=== PATIENT | male | born 1955 | race Caucasian/White ===

== ENCOUNTER 2017-03-15 05:50 | Day surgery (SDC) | payer MEDICAID ==
[2017-03-15] MEDS ORDERED: Bupivacaine 0.5% 50 ML MDV ONE (06:55)
[2017-03-15] MEDS ORDERED: Lidocaine 1% with EPINEPHrine 1:100,000 50 ML MDV ONE (06:55)
[2017-03-15] MEDS ORDERED: Lactated Ringers 1,000 ML IV ONE (07:00)
[2017-03-15] MEDS ORDERED: Glycopyrrolate 0.2 MG/ML 2 ML SYRINGE IVPUSH ONE (07:00)
[2017-03-15] MEDS ORDERED: Cyanocobalamin (Vitamin B12) 1,000 MCG/ML SDV IM ONE (07:00)
[2017-03-15] MEDS ORDERED: Midazolam 1 MG/ML 2 ML SDV ONE (07:18)
[2017-03-15] MEDS ORDERED: Propofol 200 MG/20 ML SDV ONE ×2 (07:18→07:29)
[2017-03-15] MEDS ORDERED: fentaNYL 100 MCG/2 ML SDV ONE (07:18)
[2017-03-15] MEDS ORDERED: Bacitracin Oint 1 GM U/D Packet ONE (07:44)
[2017-03-15] MEDS ORDERED: MVI, Adult with Vitamin K 10 ML, Thiamine 200 MG, Chromium/Copper/Mang/Selen/Zn 1 ML in... IV ONE ×4 (08:00)
[2017-03-15 09:24] VITALS: BP 120/66
--- NOTE | 2017-03-21 14:28 | OR ---
DATE OF PROCEDURE: 03/15/2017 PREOPERATIVE DIAGNOSES: 1. 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 2. Foreign body, volar aspect of right wrist. POSTOPERATIVE DIAGNOSES: 1. 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 2. Metallic foreign body, volar aspect of right wrist with scar formation to adjacent flexor tendons. OPERATIVE PROCEDURE: 1. Upper GI endoscopy with dilation of gastrojejunostomy (50387). 2. Removal of foreign body, volar aspect of right wrist (54546). ANESTHESIA: Local plus IV sedation. INDICATION FOR PROCEDURE: A 61-year-old male presenting with some recurrent stricturing at his gastrojejunostomy. The plan is to proceed with upper GI endoscopy with dilation as indicated. Potential risks including bleeding and perforation were discussed, and the patient wishes to proceed. DETAILS OF PROCEDURE: The patient was taken to the operating room and placed in a left lateral decubitus position. IV sedation was administered, after which the upper GI endoscope was passed orally through the length of the esophagus and into the stomach with the gastrojejunostomy now being visualized and noted to be fairly tight measuring around 8 mm in diameter with relatively a little inflammation at the mucosal level. A Bard gastrointestinal balloon catheter was then placed across the anastomosis using fluoroscopic surveillance, inflated to 45-Georgian size, was held in position for 1 minute and after which balloon catheter was deflated and withdrawn. The scope could easily then be passed through the anastomosis. No complications were noted and the patient tolerated the procedure well. The patient was now placed in the supine position and the right wrist and surrounding areas were prepped and draped. The skin overlying the palpable foreign body was then anesthetized with 1% lidocaine mixed with Marcaine and a transverse incision was made and this was carried down through the skin and subcutaneous tissue. As one entered the fibrous capsule around the metallic foreign body, this was gradually dissected free. This was in the subfascial location partially between two of the flexor tendons. This was dissected off the flexor tendons without injury to the tendon themselves and the specimen delivered from the field. The incision was then closed with some 4-0 Vicryl stitch deep and a 5-0 Prolene skin stitch. Dressing was applied and the patient taken to the recovery room in satisfactory condition. The plan will be to try to get the patient a little bit larger level of dilation a week from now, as his nutritional status has become fairly tenuous. We will also remove the sutures at that time. This will be scheduled for this coming Wednesday. Jamari Augustin MD /[id number]
== END 2017-03-15 09:45 | disposition home or self-care (01) ==
LOC: JP.SDS 05:50
PROVIDERS: ATTEND Surgery
DX: K91.89 Other postprocedural complications and disorders of digestive system (principal); J44.9 Chronic obstructive pulmonary disease, unspecified; G47.33 Obstructive sleep apnea (adult) (pediatric); I25.10 Atherosclerotic heart disease of native coronary artery without angina pectoris; K21.9 Gastro-esophageal reflux disease without esophagitis; F32.9 Major depressive disorder, single episode, unspecified; F41.9 Anxiety disorder, unspecified
CPT/HCPCS: 20525; 43245; 88305; J2250; J2704; J3010; J3411; J3420; J7120

== ENCOUNTER 2017-03-22 07:27 | Day surgery (SDC) | payer MEDICAID ==
[2017-03-22] MEDS ORDERED: Lactated Ringers 1,000 ML IV SCH (08:00)
[2017-03-22] MEDS ORDERED: Cyanocobalamin (Vitamin B12) 1,000 MCG/ML SDV IM ONE (08:00)
[2017-03-22] MEDS ORDERED: Glycopyrrolate 0.2 MG/ML 2 ML SYRINGE IVPUSH ONE (08:30)
[2017-03-22] MEDS ORDERED: MVI, Adult with Vitamin K 10 ML, Thiamine 200 MG, Chromium/Copper/Mang/Selen/Zn 1 ML in... IV ONE ×4 (09:00)
[2017-03-22] MEDS ORDERED: Propofol 200 MG/20 ML SDV ONE (09:22)
[2017-03-22] MEDS ORDERED: fentaNYL 100 MCG/2 ML SDV ONE (09:22)
[2017-03-22] MEDS ORDERED: Midazolam 1 MG/ML 2 ML SDV ONE (09:22)
[2017-03-22 11:46] VITALS: BP 118/65
--- NOTE | 2017-03-28 13:32 | OR ---
DATE OF PROCEDURE: 03/22/2017 PREOPERATIVE DIAGNOSIS: Moderate stricture at gastrojejunostomy. POSTOPERATIVE DIAGNOSIS: Moderate stricture at gastrojejunostomy. PROCEDURE: Upper GI endoscopy with dilation of gastrojejunostomy. ANESTHESIA: IV sedation. INDICATION FOR PROCEDURE: This is a 61-year-old presenting with some problems with stricturing at his gastrojejunostomy, plan is to proceed with upper GI endoscopy with dilation as indicated. Potential risks including bleeding and perforation were discussed, and the patient wishes to proceed. DETAILS OF PROCEDURE: The patient was taken to the operating room and placed in a left lateral decubitus position. IV sedation was administered, after which the upper GI endoscope was passed orally through the length of the esophagus and into the gastric pouch. The patient did have a moderate stricture with the 1 cm scope not quite being able to be passed through the anastomosis. Bard gastrointestinal balloon catheter was then centered across the anastomosis and inflated to 45-Polish size. This was initially up to a 45 PSI. Upon deflation of the catheter, not much happened in terms of additional dilation. The catheter was then re-inflated to 60 PSI level. After the balloon was in position for 30 seconds, the catheter was withdrawn. This did result in a satisfactory dilation with the scope now easily being able to pass through the anastomosis. No complications were noted. The patient was taken to the recovery room in satisfactory condition. Note, the patient had a foreign body removed from his wrist on the right side a week ago. This incision was cleaned and the sutures were removed and Steri-Strips applied. Jamari Augustin MD /[id number]
== END 2017-03-22 11:35 | disposition home or self-care (01) ==
LOC: JP.SDS 07:27
PROVIDERS: ATTEND Surgery
DX: K91.89 Other postprocedural complications and disorders of digestive system (principal); J44.9 Chronic obstructive pulmonary disease, unspecified; I10 Essential (primary) hypertension; I25.10 Atherosclerotic heart disease of native coronary artery without angina pectoris; K21.9 Gastro-esophageal reflux disease without esophagitis; F41.9 Anxiety disorder, unspecified; F32.9 Major depressive disorder, single episode, unspecified; G47.33 Obstructive sleep apnea (adult) (pediatric)
CPT/HCPCS: 43245; J2250; J2704; J3010; J3411; J3420; J7120

== ENCOUNTER 2017-06-14 13:35 | Emergency (ER) | payer MEDICAID ==
[2017-06-14 14:12] VITALS: BP 111/67
--- NOTE | 2017-06-14 15:00 | EDM.PDOCBH ---
ED HPI GENERAL MEDICAL PROBLEM - General Chief Complaint: Behavioral/Psych Stated Complaint: SUICIDAL IDEATION Time Seen by Provider: 06/14/17 14:45 Source of Information: Reports: Patient, Family History Limitations: Reports: No Limitations - History of Present Illness INITIAL COMMENTS - FREE TEXT/NARRATIVE: Ryne is a 61 year old male with a hx of chronic neck pain, s/p gastric bypass with multiple esophageal dilitation who presents to the ED today with his brother and . Brother reports that patient has not been eating, he drinks wine "all day", drinks with his Percocet in order to help his chronic pain which patient agrees with. Brother reports that yesterday patient asked where the gun and bullets were because he wanted to "end things" and be with their Dad (who years ago). Patient tells me he wouldn't actually shoot himself. Brother also reports that patient has told him he would run infront of an oncoming car. Brother is concerned about suicidal ideation/behavior. Brother's committed suicide 3 years ago. Patient reports he "can't live like this anymore" referring to the chronic pain. Patient was most recently at [facility] where he had cervical spine injections done which he reports did not help. Neck Pain Score (Numeric/FACES): 10 - Related Data Allergies Allergy/AdvReac Type Severity Reaction Status Date / Time No Known Allergies Allergy Verified 03/05/17 08:06 Home Meds: Home Meds Aspirin [Vince Chewable Aspirin] 81 mg PO DAILY 12/08/14 [History] Nystatin/Triamcinolone Crm [Mycolog Crm] 1 film TOP BID PRN 12/08/14 [History] Polyethylene Glycol 3350 [MiraLAX] 17 gm PO ASDIRECTED 12/27/15 [History] oxyCODONE 10 mg PO Q6H PRN 01/01/16 [History] Multivitamins [Childrens Chewable Vitamin] 1 each PO BID #100 tab.chew 01/02/16 [Rx] Ibuprofen 400 mg PO Q8H PRN 08/27/16 [History] Calcium Carbonate [Calcium] 500 mg PO DAILY 09/24/16 [History] Cetirizine [ZyrTEC] 5 mg PO DAILY 09/24/16 [History] Acetaminophen [Mapap] 500 mg PO Q4H PRN 03/05/17 [History] Escitalopram [Lexapro] 10 mg PO DAILY 03/05/17 [History] Gabapentin [Neurontin] 300 mg PO TID 06/14/17 [History] Past Medical History HEENT History: Reports: Allergic Rhinitis, Hard of Hearing, Impaired Vision Other HEENT History: wears glasses Cardiovascular History: Reports: Bypass, CAD, High Cholesterol, Hypertension, [place] Respiratory History: Reports: Asthma, COPD, SOB Other Respiratory History: patient states no longer has respiratory problems; has been ok for past year Gastrointestinal History: Reports: Cholelithiasis, Chronic Constipation, Chronic Diarrhea, GERD, Hiatal Hernia, Irritable Bowel Syndrome, Pancreatitis, Other (See Below) Other Gastrointestinal History: colitis; denies all problems within past 2 years Genitourinary History: Reports: None Musculoskeletal History: Reports: Fracture, Neck Pain, Chronic, Osteoarthritis Neurological History: Reports: TIA Psychiatric History: Reports: Anxiety, Depression, Panic Attack Other Psychiatric History: denies this history Endocrine/Metabolic History: Reports: Diabetes, Type II, Vitamin D Deficiency Other Endocrine/Metabolic History: diabetes controlled within last 1.5 years and not on any medication Hematologic History: Reports: Anemia, B12 Deficiency, Blood Transfusion(s) Immunologic History: Reports: None Oncologic (Cancer) History: Reports: None Dermatologic History: Reports: Other (See Below) Other Dermatologic History: occasional rash - Infectious Disease History Infectious Disease History: Reports: Chicken Pox, Measles, Mumps Other Infectious Disease History: unknown - Past Surgical History Head Surgeries/Procedures: Reports: None HEENT Surgical History: Reports: Other (See Below) Other HEENT Surgeries/Procedures: scar tissue removed from nose Cardiovascular Surgical History: Reports: Coronary Artery Bypass, Other (See Below) Other Cardiovascular Surgeries/Procedures: quad bypass-2012 veins removed left arm= No BP or IV-poor circulation Respiratory Surgical History: Reports: None GI Surgical History: Reports: Bariatric Procedure, Cholecystectomy, Colonoscopy , EGD, Esophageal Dilatation, Hernia, Abdominal, Gisela Fundoplication Other GI Surgeries/Procedures: lap RNY on 12-31-15 Male Surgical History: Reports: None Endocrine Surgical History: Reports: None Neurological Surgical History: Reports: None Musculoskeletal Surgical History: Reports: None Oncologic Surgical History: Reports: None Dermatological Surgical History: Reports: Other (See Below) Social & Family History - Family History Family Medical History: Noncontributory HEENT: Reports: Cataract, Hearing Impairment, Impaired Vision Cardiac: Reports: CAD, Hypertension Respiratory: Reports: COPD GI: Reports: None : Reports: None OBGYN: Reports: None Musculoskeletal: Reports: Arthritis, Gout Neurological: Reports: None Psychiatric: Reports: Anxiety Endocrine/Metabolic: Reports: Diabetes, Type I, Diabetes, type II Hematologic: Reports: None Immunologic: Reports: None Dermatologic: Reports: None Oncologic: Reports: Prostate - Tobacco Use Smoking Status *Q: Former Smoker Years of Tobacco use: 30 Packs/Tins Daily: 1 Used Tobacco, but Quit: Yes Month Tobacco Last Used: many years ago Second Hand Smoke Exposure: No - Caffeine Use Caffeine Use: Reports: None Other Caffeine Use: 1/2 cup per day - Alcohol Use Days Per Week of Alcohol Use: 7 Number of Drinks Per Day: 6 Total Drinks Per Week: 42 Date of Last Drink: 06/14/17 - Recreational Drug Use Recreational Drug Use: Yes Drug Use in Last 12 Months: Yes Recreational Drug Type: Reports: Marijuana/Hashish, Oxycodone Recreational Drug Use Frequency: Daily ED ROS GENERAL - Review of Systems Review Of Systems: ROS reveals no pertinent complaints other than HPI. ED EXAM, BEHAVIORAL HEALTH - Physical Exam Exam: See Below Exam Limited By: No Limitations General Appearance: Alert, WD/WN Respiratory/Chest: No Respiratory Distress, Lungs Clear, Normal Breath Sounds Cardiovascular: Normal Peripheral Pulses, Regular Rate, Rhythm GI/Abdominal: Normal Bowel Sounds, Soft, Other (generalized abdominal tenderness ) Extremities: Normal Inspection Neurological: Alert, Other (flat affect, oriented times three) Psychiatric: Alert, Flat Affect, Suicidal Thoughts Skin Exam: Warm, Dry, Other (multiple areas where patient has scratched and left open wounds on upper extremities.) COURSE, BEHAVIORAL HEALTH COMP - Course Vital Signs: Last Vital Signs Temp 35.9 C 06/14/17 14:11 Pulse 66 06/14/17 14:11 Resp 16 06/14/17 14:11 BP 111/67 06/14/17 14:11 Pulse Ox 96 06/14/17 14:11 Ryne is a 61 year old male with chronic pain who presents to the ED with his and brother who are concerned about patient and suicidal ideation. Please refer to HPI and focused exam. Patient denies actively being suicidal but reports he also does not want to go on living. Crisis team has been called to evaluate patient. Blood work is pending. Orders, Labs, Meds: Laboratory Tests 06/14/17 06/14/17 06/14/17 Range/Units 14:44 14:44 14:55 WBC 6.5 (4.5-11.0) K/uL RBC 3.10 L (4.30-5.90) M/uL Hgb 10.8 L D (12.0-15.0) g/dL Hct 32.4 L (40.0-54.0) % MCV 105 H (80-98) fL MCH 35 H (27-31) pg MCHC 33 (32-36) % Plt Count 173 (150-400) K/uL Neut % (Auto) 65 (36-66) % Lymph % (Auto) 16 L (24-44) % Henry % (Auto) 16 H (2-6) % Eos % (Auto) 1 L (2-4) % Baso % (Auto) 1 (0-1) % Sodium 140 (140-148) mmol/L Potassium 4.0 (3.6-5.2) mmol/L Chloride 105 (100-108) mmol/L Carbon Dioxide 31 (21-32) mmol/L Anion Gap 3.6 L (5.0-14.0) mmol/L BUN 5 L (7-18) mg/dL Creatinine 0.7 L (0.8-1.3) mg/dL Est Cr Clr Drug Dosing 114.83 mL/min Estimated GFR (MDRD) > 60 (>60) Glucose 110 H (74-106) mg/dL Calcium 7.9 L (8.5-10.1) mg/dL Total Bilirubin 0.8 (0.2-1.0) mg/dL Direct Bilirubin 0.43 H (0.0-0.2) mg/dL Indirect Bilirubin 0.37 AST 146 H D (15-37) U/L ALT 64 D (12-78) U/L Alkaline Phosphatase 159 H (46-116) U/L Total Protein 5.6 L (6.4-8.2) g/dL Albumin 2.5 L (3.4-5.0) g/dL Globulin 3.1 (2.3-3.5) g/dL Albumin/Globulin Ratio 0.8 L (1.2-2.2) TSH, Ultra Sensitive (0.358-3.740) uIU/mL Urine Color Urine Appearance Urine pH (4.5-8.0) Ur Specific [place] (1.008-1.030) Urine Protein (NEGATIVE) mg/dL Urine Glucose (UA) (NEGATIVE) mg/dL Urine Ketones (NEGATIVE) mg/dL Urine Occult Blood (NEGATIVE) Urine Nitrite (NEGAITVE) Urine Bilirubin (NEGATIVE) Urine Urobilinogen (NORMAL) mg/dL Ur Leukocyte Esterase (NEGATIVE) Urine RBC (0-5) Urine WBC (0-5) Ur Epithelial Cells Amorphous Sediment Urine Bacteria Urine Mucus Urine Opiates Screen (NEGATIVE) Ur Oxycodone Screen (NEGATIVE) Urine Methadone Screen (NEGATIVE) Ur Propoxyphene Screen (NEGATIVE) Ur Barbiturates Screen (NEGATIVE) Ur Tricyclics Screen (NEGATIVE) Ur Phencyclidine Scrn (NEGATIVE) Ur Amphetamine Screen (NEGATIVE) U Methamphetamines Scrn (NEGATIVE) Urine MDMA Screen (NEGATIVE) U Benzodiazepines Scrn (NEGATIVE) U Cocaine Metab Screen (NEGATIVE) U Marijuana (THC) Screen (NEGATIVE) Ethyl Alcohol mg/dL 06/14/17 06/14/17 06/14/17 Range/Units 15:53 15:53 15:55 WBC (4.5-11.0) K/uL RBC (4.30-5.90) M/uL Hgb (12.0-15.0) g/dL Hct (40.0-54.0) % MCV (80-98) fL MCH (27-31) pg MCHC (32-36) % Plt Count (150-400) K/uL Neut % (Auto) (36-66) % Lymph % (Auto) (24-44) % Henry % (Auto) (2-6) % Eos % (Auto) (2-4) % Baso % (Auto) (0-1) % Sodium (140-148) mmol/L Potassium (3.6-5.2) mmol/L Chloride (100-108) mmol/L Carbon Dioxide (21-32) mmol/L Anion Gap (5.0-14.0) mmol/L BUN (7-18) mg/dL Creatinine (0.8-1.3) mg/dL Est Cr Clr Drug Dosing mL/min Estimated GFR (MDRD) (>60) Glucose (74-106) mg/dL Calcium (8.5-10.1) mg/dL Total Bilirubin (0.2-1.0) mg/dL Direct Bilirubin (0.0-0.2) mg/dL Indirect Bilirubin AST (15-37) U/L ALT (12-78) U/L Alkaline Phosphatase (46-116) U/L Total Protein (6.4-8.2) g/dL Albumin (3.4-5.0) g/dL Globulin (2.3-3.5) g/dL Albumin/Globulin Ratio (1.2-2.2) TSH, Ultra Sensitive (0.358-3.740) uIU/mL Urine Color Yellow Urine Appearance Clear Urine pH 7.0 (4.5-8.0) Ur Specific [place] 1.010 (1.008-1.030) Urine Protein Negative (NEGATIVE) mg/dL Urine Glucose (UA) Normal (NEGATIVE) mg/dL Urine Ketones Negative (NEGATIVE) mg/dL Urine Occult Blood Negative (NEGATIVE) Urine Nitrite Negative (NEGAITVE) Urine Bilirubin Negative (NEGATIVE) Urine Urobilinogen 4 (NORMAL) mg/dL Ur Leukocyte Esterase Negative (NEGATIVE) Urine RBC 0-5 (0-5) Urine WBC 0-5 (0-5) Ur Epithelial Cells Few Amorphous Sediment Few Urine Bacteria Not seen Urine Mucus Few Urine Opiates Screen Negative (NEGATIVE) Ur Oxycodone Screen Positive H (NEGATIVE) Urine Methadone Screen Negative (NEGATIVE) Ur Propoxyphene Screen Negative (NEGATIVE) Ur Barbiturates Screen Negative (NEGATIVE) Ur Tricyclics Screen Negative (NEGATIVE) Ur Phencyclidine Scrn Negative (NEGATIVE) Ur Amphetamine Screen Negative (NEGATIVE) U Methamphetamines Scrn Negative (NEGATIVE) Urine MDMA Screen Negative (NEGATIVE) U Benzodiazepines Scrn Negative (NEGATIVE) U Cocaine Metab Screen Negative (NEGATIVE) U Marijuana (THC) Screen Negative (NEGATIVE) Ethyl Alcohol 182 mg/dL 06/14/17 Range/Units 16:22 WBC (4.5-11.0) K/uL RBC (4.30-5.90) M/uL Hgb (12.0-15.0) g/dL Hct (40.0-54.0) % MCV (80-98) fL MCH (27-31) pg MCHC (32-36) % Plt Count (150-400) K/uL Neut % (Auto) (36-66) % Lymph % (Auto) (24-44) % Henry % (Auto) (2-6) % Eos % (Auto) (2-4) % Baso % (Auto) (0-1) % Sodium (140-148) mmol/L Potassium (3.6-5.2) mmol/L Chloride (100-108) mmol/L Carbon Dioxide (21-32) mmol/L Anion Gap (5.0-14.0) mmol/L BUN (7-18) mg/dL Creatinine (0.8-1.3) mg/dL Est Cr Clr Drug Dosing mL/min Estimated GFR (MDRD) (>60) Glucose (74-106) mg/dL Calcium (8.5-10.1) mg/dL Total Bilirubin (0.2-1.0) mg/dL Direct Bilirubin (0.0-0.2) mg/dL Indirect Bilirubin AST (15-37) U/L ALT (12-78) U/L Alkaline Phosphatase (46-116) U/L Total Protein (6.4-8.2) g/dL Albumin (3.4-5.0) g/dL Globulin (2.3-3.5) g/dL Albumin/Globulin Ratio (1.2-2.2) TSH, Ultra Sensitive 2.107 (0.358-3.740) uIU/mL Urine Color Urine Appearance Urine pH (4.5-8.0) Ur Specific [place] (1.008-1.030) Urine Protein (NEGATIVE) mg/dL Urine Glucose (UA) (NEGATIVE) mg/dL Urine Ketones (NEGATIVE) mg/dL Urine Occult Blood (NEGATIVE) Urine Nitrite (NEGAITVE) Urine Bilirubin (NEGATIVE) Urine Urobilinogen (NORMAL) mg/dL Ur Leukocyte Esterase (NEGATIVE) Urine RBC (0-5) Urine WBC (0-5) Ur Epithelial Cells Amorphous Sediment Urine Bacteria Urine Mucus Urine Opiates Screen (NEGATIVE) Ur Oxycodone Screen (NEGATIVE) Urine Methadone Screen (NEGATIVE) Ur Propoxyphene Screen (NEGATIVE) Ur Barbiturates Screen (NEGATIVE) Ur Tricyclics Screen (NEGATIVE) Ur Phencyclidine Scrn (NEGATIVE) Ur Amphetamine Screen (NEGATIVE) U Methamphetamines Scrn (NEGATIVE) Urine MDMA Screen (NEGATIVE) U Benzodiazepines Scrn (NEGATIVE) U Cocaine Metab Screen (NEGATIVE) U Marijuana (THC) Screen (NEGATIVE) Ethyl Alcohol mg/dL Medications Discontinued Medications Generic Name Dose Route Start Last Admin Trade Name Lina PRN Reason Stop Dose Admin Diazepam 10 mg 06/14/17 19:30 06/14/17 19:35 Valium. PO 06/14/17 19:31 10 mg ONETIME ONE Administration Ryne is a 61 year old male, hx of chronic pain, on oxycodone (Percocet) who presents to the ED with his family for suicidal ideation. Please refer to HPI and focused exam. Patient refuses to speak with crisis team on arrival here. Will call [facility] patient, patient was placed on 72 hour hold for suicidal ideation. Blood work as noted above with mildly low HGB of 10.8, likely FATIMAH related based on other results. Normal WBC. CMP returns with anion gap of 3.6, calcium of 7.9 and AST of 146. Alk phos is 159 and total protein of 5.6, otherwise unremarkable. UA negative for infection. Drug screen pending. Blood ETOH 0.182 [address]. Patient accepted at [facility] by Dr. Sandhu. Transferred in stable condition by [facility] transport. Departure - Departure Time of Disposition: 21:00 Disposition: DC/Tfer to Psych Hosp/Unit 65 Condition: Good Clinical Impression: Alcohol abuse, Drug abuse, Suicidal ideation - Discharge Information Referrals: PCP,None [Primary Care Provider] - Forms: ED Department Discharge
[2017-06-14] MEDS ORDERED: Diazepam 5 MG Tab PO ONE (19:30)
== END 2017-06-14 21:03 ==
LOC: JP.ED 13:35
DX: R45.851 Suicidal ideations (principal); F10.10 Alcohol abuse, uncomplicated; Y90.6 Blood alcohol level of 120-199 mg/100 ml; F19.10 Other psychoactive substance abuse, uncomplicated; E11.9 Type 2 diabetes mellitus without complications; J44.9 Chronic obstructive pulmonary disease, unspecified; I25.10 Atherosclerotic heart disease of native coronary artery without angina pectoris; M19.90 Unspecified osteoarthritis, unspecified site; E78.00 Pure hypercholesterolemia, unspecified; I10 Essential (primary) hypertension; D64.9 Anemia, unspecified; I25.2 Old myocardial infarction; K21.9 Gastro-esophageal reflux disease without esophagitis; F41.9 Anxiety disorder, unspecified; F32.9 Major depressive disorder, single episode, unspecified; Z87.891 Personal history of nicotine dependence; Z79.82 Long term (current) use of aspirin; Z95.1 Presence of aortocoronary bypass graft; Z98.890 Other specified postprocedural states; Z98.84 Bariatric surgery status; Z90.49 Acquired absence of other specified parts of digestive tract; Z86.73 Personal history of transient ischemic attack (TIA), and cerebral infarction without residual deficits; Z79.899 Other long term (current) drug therapy
CPT/HCPCS: 36415; 80048; 80076; 80305; 81001; 84443; 85025; 99284; A9270; G0480

== ENCOUNTER 2017-09-14 05:40 | Day surgery (SDC) | payer MEDICAID ==
[2017-09-14] MEDS ORDERED: Lactated Ringers 1,000 ML IV SCH (06:15)
[2017-09-14] MEDS ORDERED: MVI, Adult with Vitamin K 10 ML, Thiamine 200 MG, Chromium/Copper/Mang/Selen/Zn 1 ML in... IV ONE ×4 (06:30)
[2017-09-14] MEDS ORDERED: Cyanocobalamin (Vitamin B12) 1,000 MCG/ML SDV IM ONE (06:30)
[2017-09-14] MEDS ORDERED: Midazolam 1 MG/ML 2 ML SDV ONE (07:15)
[2017-09-14] MEDS ORDERED: Propofol 200 MG/20 ML SDV ONE ×2 (07:15→07:36)
[2017-09-14] MEDS ORDERED: Glycopyrrolate 0.2 MG/ML 2 ML SDV IVPUSH ONE (07:15)
[2017-09-14] MEDS ORDERED: fentaNYL 100 MCG/2 ML SDV ONE (07:15)
[2017-09-14] MEDS ORDERED: Pantoprazole 40 MG Vial IVPUSH ONE (07:42)
[2017-09-14 08:59] VITALS: BP 117/55
--- NOTE | 2017-09-15 17:20 | OR ---
DATE OF PROCEDURE: 09/14/2017 PREOPERATIVE DIAGNOSIS: Probable stricture versus ulcerated gastrojejunostomy. 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 OPERATIVE PROCEDURE: Upper GI endoscopy with dilation of gastrojejunostomy (11716). ANESTHESIA: IV sedation. INDICATIONS FOR PROCEDURE: A 62-year-old male presenting with worsening dysphagia and some intermittent emesis. He also complains of some burning pain. Plan is to proceed with an upper GI endoscopy with biopsies and/or dilation as indicated. Potential risks including bleeding and perforation were discussed, and the patient wishes to proceed. DETAILS OF PROCEDURE: The patient was taken to the operating room and placed in a left lateral decubitus position. IV sedation was administered, after which the upper GI endoscope was passed orally through the length of the esophagus and into the gastric pouch. No retained food or fluid was noted. He was noted to have a moderate strictured gastrojejunostomy with 1 cm scope not quite even being able to get across the anastomosis. There was little in the way of acute inflammation however. The Bard gastrointestinal balloon catheter was initially centered over the gastrojejunostomy with fluoroscopic surveillance and inflated to 45-Albanian size. After this was deflated, we decided to go with a little bit larger size and that being a 54-Albanian. This was likewise inflated and held in position for 1 minute and balloon catheter was deflated and withdrawn. There was good dilation evident and no evident complications. The patient was taken to the recovery room in a satisfactory condition. Jamari Augustin MD /[id number]
== END 2017-09-14 11:17 | disposition home or self-care (01) ==
LOC: JP.SDS 05:40
PROVIDERS: ATTEND Surgery
DX: K91.89 Other postprocedural complications and disorders of digestive system (principal); I25.10 Atherosclerotic heart disease of native coronary artery without angina pectoris; I10 Essential (primary) hypertension; J44.9 Chronic obstructive pulmonary disease, unspecified; G47.33 Obstructive sleep apnea (adult) (pediatric); F41.9 Anxiety disorder, unspecified; E11.9 Type 2 diabetes mellitus without complications; E55.9 Vitamin D deficiency, unspecified; F32.9 Major depressive disorder, single episode, unspecified; K21.9 Gastro-esophageal reflux disease without esophagitis; Z98.84 Bariatric surgery status; Z95.1 Presence of aortocoronary bypass graft; Z90.49 Acquired absence of other specified parts of digestive tract
CPT/HCPCS: 36415; 43245; 80053; 82607; 82728; 82746; 83735; 84100; 84425; 85027; C9113; J2250; J2704; J3010; J3411; J3420; J7120; J3490

== ENCOUNTER 2017-11-02 09:32 | Day surgery (SDC) | payer MEDICAID ==
[~2017-11-02 09:32] MED LIST: Glycopyrrolate 0.2 MG/ML 2 ML SDV IVPUSH ONE; Lactated Ringers 1,000 ML IV ONE
[2017-11-02] MEDS ORDERED: Propofol 200 MG/20 ML SDV ONE (09:43)
[2017-11-02] MEDS ORDERED: fentaNYL 100 MCG/2 ML SDV ONE (09:43)
[2017-11-02] MEDS ORDERED: Midazolam 1 MG/ML 2 ML SDV ONE (09:43)
[2017-11-02] MEDS ORDERED: Cyanocobalamin (Vitamin B12) 1,000 MCG/ML SDV IM ONE (09:45)
[2017-11-02] MEDS ORDERED: MVI, Adult with Vitamin K 10 ML, Thiamine 200 MG, Chromium/Copper/Mang/Selen/Zn 1 ML in... IV ONE ×4 (10:00)
[2017-11-02] MEDS ORDERED: Pantoprazole 40 MG Vial IVPUSH ONE (12:46)
[2017-11-02 13:47] VITALS: BP 139/79
--- NOTE | 2017-11-11 09:46 | OR ---
DATE OF PROCEDURE: 11/02/2017 PREOPERATIVE DIAGNOSIS: Possible stricture at the gastrojejunostomy. POSTOPERATIVE DIAGNOSES: 1. Stricture at the gastrojejunostomy. 2. Ulceration at the gastrojejunostomy. OPERATIVE PROCEDURE: Upper gastrointestinal endoscopy with dilation of gastrojejunostomy (45122). ANESTHESIA: IV sedation. INDICATION FOR PROCEDURE: A 62-year-old presenting with some meat caught in the area of the gastric pouch and gastrojejunostomy over the last 6 days. The patient has recently been on Prilosec 40 mg b.i.d. as well as Carafate liquid q.i.d. The plan is to proceed with upper GI endoscopy with biopsy, dilation, and removal of foreign body as indicated. Potential risks including bleeding and perforation were discussed, and the patient wishes to proceed. DETAILS OF PROCEDURE: The patient was taken to the operating room and placed in a left lateral decubitus position. IV sedation was administered, after which the upper GI endoscope was passed orally through the length of the esophagus and into the gastric pouch and from there to the level of gastrojejunostomy. The patient was noted to have quite a bit of bruising in the area of the distal esophagus and gastric pouch. There was no retained meat or other food at this point. There was evidence of this having been impacted in that area over the past few days. Based on the above findings, the patient did have some ulceration of the posterior aspect of the gastrojejunostomy and that may be related to the foreign body in that area. There was mild degree of stricturing with 1 cm gastroscope not quite being able to be passed across the anastomosis; therefore, a gastrointestinal catheter was then centered across the anastomosis and balloon inflated to 45-Arabic size. This was held in position for 1 minute after which the balloon catheter was deflated and withdrawn. At that point, the scope would easily pass through the gastrojejunostomy and no complications were noted and the scope was withdrawn. The patient was taken to the recovery room in satisfactory condition. The patient will be instructed to continue with the present medical management and continue on a liquid diet for another 7 days. He will be set up for followup with NATALIE Bowling, in 1 month. Jamari Augustin MD /[id number]
== END 2017-11-02 14:00 | disposition home or self-care (01) ==
LOC: JP.SDS 09:32
PROVIDERS: ATTEND Surgery
DX: K91.89 Other postprocedural complications and disorders of digestive system (principal)
CPT/HCPCS: 36415; 43245; 80053; 82607; 82728; 83735; 84100; 85027; C9113; J2250; J2704; J3010; J3411; J3420; J7120; J3490

== ENCOUNTER 2017-12-09 16:19 | Emergency (ER) | payer MEDICAID ==
[2017-12-09 17:18] VITALS: BP 84/51
--- NOTE | 2017-12-09 18:17 | EDM.PDOCBH ---
ED HPI GENERAL MEDICAL PROBLEM - General Chief Complaint: Drug or Alcohol Abuse Stated Complaint: eval Time Seen by Provider: 12/09/17 18:12 Source of Information: Reports: Patient History Limitations: Reports: No Limitations - History of Present Illness INITIAL COMMENTS - FREE TEXT/NARRATIVE: pt arrived with a history of increaSINGLY DRINKING MORE AND MORE WINE. hE IS PRESENTLY DRINKING AT LEAST 4 -- 16 OZ BOTTLES DAILY OF THE WINE. Onset: Gradual, Other (PT IS INTERESTED IN MAKING CHANGES. hE IS DUE TO HAVE SOME INJECTIONS IN HIS NECK. ) Duration: Hour(s): Location: Reports: Neck Associated Symptoms: Reports: No Other Symptoms Neck Pain Score (Numeric/FACES): 5 - Related Data Allergies Allergy/AdvReac Type Severity Reaction Status Date / Time No Known Allergies Allergy Verified 12/09/17 17:35 Home Meds: Home Meds Aspirin [Vince Chewable Aspirin] 81 mg PO DAILY 12/08/14 [History] Cetirizine [ZyrTEC] 10 mg PO DAILY 09/24/16 [History] Cholecalciferol (Vitamin D3) [Vitamin D] 5,000 unit PO DAILY 11/02/17 [History] Diphenoxylate HCl/Atropine [Lomotil] 1 tab PO Q6H PRN 11/02/17 [History] Fish Oil/[place]-3 Fatty Acids [Fish Oil 1,000 MG] 1 cap PO DAILY 11/02/17 [ History] Gabapentin [Neurontin] 300 mg PO TID 11/02/17 [History] LORazepam 0.5 mg PO ASDIRECTED PRN 11/02/17 [History] Magnesium Oxide [Magnesium] 400 mg PO DAILY 11/02/17 [History] Sucralfate [Carafate] 1 gm PO ASDIRECTED 11/02/17 [History] traZODone 1 - 2 tab PO BEDTIME 11/02/17 [History] Past Medical History HEENT History: Reports: Allergic Rhinitis, Hard of Hearing, Impaired Vision Other HEENT History: wears glasses Cardiovascular History: Reports: Bypass, CAD, High Cholesterol, Hypertension, ID Respiratory History: Reports: Asthma, COPD, SOB Other Respiratory History: patient states no longer has respiratory problems; has been ok for past year Gastrointestinal History: Reports: Cholelithiasis, Chronic Constipation, Chronic Diarrhea, GERD, Hiatal Hernia, Irritable Bowel Syndrome, Pancreatitis, Other (See Below) Other Gastrointestinal History: colitis Genitourinary History: Reports: None Musculoskeletal History: Reports: Fracture, Neck Pain, Chronic, Osteoarthritis Neurological History: Reports: TIA Psychiatric History: Reports: Addiction, Anxiety, Depression, Panic Attack Other Psychiatric History: denies this history Endocrine/Metabolic History: Reports: Diabetes, Type II, Vitamin D Deficiency Other Endocrine/Metabolic History: has not had diabetic issues since bariatric surgery Hematologic History: Reports: Anemia, B12 Deficiency, Blood Transfusion(s) Immunologic History: Reports: None Oncologic (Cancer) History: Reports: None Dermatologic History: Reports: Other (See Below) Other Dermatologic History: occasional rash - Infectious Disease History Infectious Disease History: Reports: Chicken Pox, Measles, Mumps Other Infectious Disease History: unknown - Past Surgical History HEENT Surgical History: Reports: Other (See Below) Other HEENT Surgeries/Procedures: scar tissue removed from nose Cardiovascular Surgical History: Reports: Coronary Artery Bypass, Other (See Below) Other Cardiovascular Surgeries/Procedures: quad bypass-2011 veins removed left arm= No BP or IV-poor circulation GI Surgical History: Reports: Bariatric Procedure, Cholecystectomy, Colonoscopy , EGD, Esophageal Dilatation, Hernia, Abdominal, Gisela Fundoplication Other GI Surgeries/Procedures: lap RNY on 12-31-15 Social & Family History - Family History Family Medical History: Noncontributory HEENT: Reports: Cataract, Hearing Impairment, Impaired Vision Cardiac: Reports: CAD, Hypertension Respiratory: Reports: COPD GI: Reports: None : Reports: None OBGYN: Reports: None Musculoskeletal: Reports: Arthritis, Gout Neurological: Reports: None Psychiatric: Reports: Anxiety Endocrine/Metabolic: Reports: Diabetes, Type I, Diabetes, type II Hematologic: Reports: None Immunologic: Reports: None Dermatologic: Reports: None Oncologic: Reports: Prostate - Tobacco Use Smoking Status *Q: Never Smoker Years of Tobacco use: 30 Packs/Tins Daily: 1 Used Tobacco, but Quit: Yes Month Tobacco Last Used: Second Hand Smoke Exposure: No - Caffeine Use Caffeine Use: Reports: None Other Caffeine Use: 1/2 cup per day - Alcohol Use Days Per Week of Alcohol Use: 7 Number of Drinks Per Day: 4 Total Drinks Per Week: 28 - Recreational Drug Use Recreational Drug Use: No Drug Use in Last 12 Months: Yes Recreational Drug Type: Reports: Other (see below) Other Recreational Drug Type: used medical marijuana last night but didn't do anything for him Recreational Drug Use Frequency: Daily ED ROS GENERAL - Review of Systems Review Of Systems: See Below Constitutional: Reports: No Symptoms HEENT: Reports: No Symptoms Respiratory: Reports: No Symptoms Cardiovascular: Reports: No Symptoms Endocrine: Reports: No Symptoms GI/Abdominal: Reports: No Symptoms : Reports: No Symptoms Musculoskeletal: Reports: No Symptoms Skin: Reports: No Symptoms Neurological: Reports: Other (PT HAS BEEN DRINKING MORE THAN USUAL. ) ED EXAM, BEHAVIORAL HEALTH - Physical Exam Exam: See Below Text/Narrative:: PT ARRIVED WITH AHISTORY OF DRINKING ALOT OF WINE EVERY DAY, hE WISHES TO GO [facility]. Exam Limited By: No Limitations General Appearance: Alert, Mild Distress, Other (PUPILS EQUAL AND REACTIVE. ) Ears: Normal TMs Nose: Normal Inspection Throat/Mouth: Normal Inspection Head: Atraumatic Neck: Normal Inspection Respiratory/Chest: No Respiratory Distress Cardiovascular: Regular Rate, Rhythm GI/Abdominal: Soft, Non-Tender (Male) Exam: Deferred Rectal (Males) Exam: Deferred Back Exam: Normal Inspection Extremities: Normal Inspection Neurological: Alert, Oriented x 3 Psychiatric: Alert, Normal Cognition COURSE, BEHAVIORAL HEALTH COMP - Course Vital Signs: Last Vital Signs Temp 35.6 C 12/09/17 17:32 Pulse 87 12/09/17 17:32 Resp 16 12/09/17 17:32 BP 84/51 L 12/09/17 17:32 Pulse Ox 96 12/09/17 17:32 Orders, Labs, Meds: Laboratory Tests 12/09/17 12/09/17 12/09/17 Range/Units 18:11 18:11 18:11 WBC 6.7 (4.5-11.0) K/uL RBC 3.80 L (4.30-5.90) M/uL Hgb 12.9 (12.0-15.0) g/dL Hct 39.4 L (40.0-54.0) % MCV 104 H (80-98) fL MCH 34 H (27-31) pg MCHC 33 (32-36) % Plt Count 180 (150-400) K/uL Neut % (Auto) 57 (36-66) % Lymph % (Auto) 27 (24-44) % [place] % (Auto) 13 H (2-6) % Eos % (Auto) 2 (2-4) % Baso % (Auto) 1 (0-1) % Sodium 130 L (140-148) mmol/L Potassium 4.2 (3.6-5.2) mmol/L Chloride 99 L (100-108) mmol/L Carbon Dioxide 27 (21-32) mmol/L Anion Gap 8.2 (5.0-14.0) mmol/L BUN 7 (7-18) mg/dL Creatinine 0.7 L (0.8-1.3) mg/dL Est Cr Clr Drug Dosing 118.56 mL/min Estimated GFR (MDRD) > 60 (>60) Glucose 103 (74-106) mg/dL Calcium 8.1 L (8.5-10.1) mg/dL Total Bilirubin 0.3 D (0.2-1.0) mg/dL AST 70 H (15-37) U/L ALT 45 (12-78) U/L Alkaline Phosphatase 132 H (46-116) U/L Total Protein 5.1 L (6.4-8.2) g/dL Albumin 2.4 L (3.4-5.0) g/dL Globulin 2.7 (2.3-3.5) g/dL Albumin/Globulin Ratio 0.9 L (1.2-2.2) Lipase (73-393) U/L Urine Color Urine Appearance Urine pH (4.5-8.0) Ur Specific [place] (1.008-1.030) Urine Protein (NEGATIVE) mg/dL Urine Glucose (UA) (NEGATIVE) mg/dL Urine Ketones (NEGATIVE) mg/dL Urine Occult Blood (NEGATIVE) Urine Nitrite (NEGAITVE) Urine Bilirubin (NEGATIVE) Urine Urobilinogen (NORMAL) mg/dL Ur Leukocyte Esterase (NEGATIVE) Urine RBC (0-5) Urine WBC (0-5) Ur Epithelial Cells Amorphous Sediment Urine Bacteria Urine Mucus Urine Opiates Screen (NEGATIVE) Ur Oxycodone Screen (NEGATIVE) Urine Methadone Screen (NEGATIVE) Ur Propoxyphene Screen (NEGATIVE) Ur Barbiturates Screen (NEGATIVE) Ur Tricyclics Screen (NEGATIVE) Ur Phencyclidine Scrn (NEGATIVE) Ur Amphetamine Screen (NEGATIVE) U Methamphetamines Scrn (NEGATIVE) Urine MDMA Screen (NEGATIVE) U Benzodiazepines Scrn (NEGATIVE) U Cocaine Metab Screen (NEGATIVE) U Marijuana (THC) Screen (NEGATIVE) Ethyl Alcohol 170 mg/dL 12/09/17 12/09/17 12/09/17 Range/Units 18:18 18:25 18:25 WBC (4.5-11.0) K/uL RBC (4.30-5.90) M/uL Hgb (12.0-15.0) g/dL Hct (40.0-54.0) % MCV (80-98) fL MCH (27-31) pg MCHC (32-36) % Plt Count (150-400) K/uL Neut % (Auto) (36-66) % Lymph % (Auto) (24-44) % [place] % (Auto) (2-6) % Eos % (Auto) (2-4) % Baso % (Auto) (0-1) % Sodium (140-148) mmol/L Potassium (3.6-5.2) mmol/L Chloride (100-108) mmol/L Carbon Dioxide (21-32) mmol/L Anion Gap (5.0-14.0) mmol/L BUN (7-18) mg/dL Creatinine (0.8-1.3) mg/dL Est Cr Clr Drug Dosing mL/min Estimated GFR (MDRD) (>60) Glucose (74-106) mg/dL Calcium (8.5-10.1) mg/dL Total Bilirubin (0.2-1.0) mg/dL AST (15-37) U/L ALT (12-78) U/L Alkaline Phosphatase (46-116) U/L Total Protein (6.4-8.2) g/dL Albumin (3.4-5.0) g/dL Globulin (2.3-3.5) g/dL Albumin/Globulin Ratio (1.2-2.2) Lipase 73 (73-393) U/L Urine Color Yellow Urine Appearance Clear Urine pH 5.0 (4.5-8.0) Ur Specific [place] 1.010 (1.008-1.030) Urine Protein Negative (NEGATIVE) mg/dL Urine Glucose (UA) Normal (NEGATIVE) mg/dL Urine Ketones Negative (NEGATIVE) mg/dL Urine Occult Blood Negative (NEGATIVE) Urine Nitrite Negative (NEGAITVE) Urine Bilirubin Negative (NEGATIVE) Urine Urobilinogen Normal (NORMAL) mg/dL Ur Leukocyte Esterase Negative (NEGATIVE) Urine RBC 0-5 (0-5) Urine WBC Not seen (0-5) Ur Epithelial Cells Not seen Amorphous Sediment Not seen Urine Bacteria Not seen Urine Mucus Not seen Urine Opiates Screen Negative (NEGATIVE) Ur Oxycodone Screen Positive H (NEGATIVE) Urine Methadone Screen Negative (NEGATIVE) Ur Propoxyphene Screen Negative (NEGATIVE) Ur Barbiturates Screen Negative (NEGATIVE) Ur Tricyclics Screen Negative (NEGATIVE) Ur Phencyclidine Scrn Negative (NEGATIVE) Ur Amphetamine Screen Negative (NEGATIVE) U Methamphetamines Scrn Negative (NEGATIVE) Urine MDMA Screen Negative (NEGATIVE) U Benzodiazepines Scrn Negative (NEGATIVE) U Cocaine Metab Screen Negative (NEGATIVE) U Marijuana (THC) Screen Negative (NEGATIVE) Ethyl Alcohol mg/dL Medical Clearance: 12/09/17 19:01 pt had a etoh level of .017. He has a neg drug scree-- he is on oxycodone. He has mild elevation in his liver enzymes. 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 His son was called and he did take him to [facility] . Departure - Departure Time of Disposition: 19:02 Disposition: Eloped 07 Condition: Fair Clinical Impression: Abuse, drug or alcohol - Discharge Information Instructions: Alcohol Intoxication, [id number] Referrals: PCP,None [Primary Care Provider] - Forms: ED Department Discharge Care Plan Goals: transfer to [facility] for detox.
== END 2017-12-09 19:15 | disposition left against medical advice (07) ==
LOC: JP.ED 16:19
DX: F10.10 Alcohol abuse, uncomplicated (principal); I10 Essential (primary) hypertension; I25.10 Atherosclerotic heart disease of native coronary artery without angina pectoris; E78.00 Pure hypercholesterolemia, unspecified; J44.9 Chronic obstructive pulmonary disease, unspecified; F32.9 Major depressive disorder, single episode, unspecified; E11.9 Type 2 diabetes mellitus without complications; Z87.891 Personal history of nicotine dependence; Z79.899 Other long term (current) drug therapy; Z79.82 Long term (current) use of aspirin
CPT/HCPCS: 36415; 80053; 80305; 81001; 83690; 85025; 99284; G0480

== ENCOUNTER 2018-01-25 13:09 | Emergency (ER) | payer MEDICAID ==
--- NOTE | 2018-01-25 14:23 | EDM.PDOC ---
ED HPI GENERAL MEDICAL PROBLEM - General Chief Complaint: Gastrointestinal Problem Stated Complaint: DEYDRATED/CLINIC SAID TO COME IN Time Seen by Provider: 01/25/18 14:14 Source of Information: Reports: Patient, Family, RN Notes Reviewed History Limitations: Reports: No Limitations - History of Present Illness INITIAL COMMENTS - FREE TEXT/NARRATIVE: 62-year-old gentleman presents to the emergency department today complaint of nausea and vomiting dehydration ill feeling he has a gastric bypass about 2 years ago has had problems with stricture and multiple dilations. He denies any fevers shortness of breath or chest pain but admits to poor oral intake - Related Data Allergies Allergy/AdvReac Type Severity Reaction Status Date / Time No Known Allergies Allergy Verified 12/09/17 17:35 Home Meds: Home Meds Aspirin [Vince Chewable Aspirin] 81 mg PO DAILY 12/08/14 [History] Cholecalciferol (Vitamin D3) [Vitamin D] 5,000 unit PO DAILY 11/02/17 [History] Fish Oil/[place]-3 Fatty Acids [Fish Oil 1,000 MG] 1 cap PO DAILY 11/02/17 [ History] Gabapentin [Neurontin] 300 mg PO TID 11/02/17 [History] Magnesium Oxide [Magnesium] 400 mg PO DAILY 11/02/17 [History] Cetirizine [ZyrTEC] 10 mg PO DAILY 01/25/18 [History] Diphenoxylate HCl/Atropine [Lomotil] 1 tab PO ASDIRECTED PRN 01/25/18 [History] Omeprazole 40 mg PO DAILY 01/25/18 [History] PARoxetine [Paxil] 20 mg PO DAILY 01/25/18 [History] Tamsulosin [Flomax] 0.4 mg PO DAILY 01/25/18 [History] Zolpidem Tartrate [Ambien] 10 mg PO DAILY 01/25/18 [History] oxyCODONE 10 mg PO BID PRN 01/25/18 [History] Past Medical History HEENT History: Reports: Allergic Rhinitis, Hard of Hearing, Impaired Vision Other HEENT History: wears glasses Cardiovascular History: Reports: Bypass, CAD, High Cholesterol, Hypertension, [place] Respiratory History: Reports: Asthma, COPD, SOB Other Respiratory History: patient states no longer has respiratory problems; has been ok for past year Gastrointestinal History: Reports: Cholelithiasis, Chronic Constipation, Chronic Diarrhea, GERD, Hiatal Hernia, Irritable Bowel Syndrome, Pancreatitis, Other (See Below) Other Gastrointestinal History: colitis Musculoskeletal History: Reports: Fracture, Neck Pain, Chronic, Osteoarthritis Neurological History: Reports: TIA Psychiatric History: Reports: Addiction, Anxiety, Depression, Panic Attack Other Psychiatric History: denies this history Endocrine/Metabolic History: Reports: Diabetes, Type II, Vitamin D Deficiency Other Endocrine/Metabolic History: has not had diabetic issues since bariatric surgery Hematologic History: Reports: Anemia, B12 Deficiency, Blood Transfusion(s) Dermatologic History: Reports: Other (See Below) Other Dermatologic History: occasional rash - Infectious Disease History Infectious Disease History: Reports: Chicken Pox, Measles, Mumps Other Infectious Disease History: unknown - Past Surgical History Head Surgeries/Procedures: Reports: None HEENT Surgical History: Reports: Other (See Below) Other HEENT Surgeries/Procedures: scar tissue removed from nose Cardiovascular Surgical History: Reports: Coronary Artery Bypass, Other (See Below) Other Cardiovascular Surgeries/Procedures: quad bypass-2011 veins removed left arm= No BP or IV-poor circulation GI Surgical History: Reports: Bariatric Procedure, Cholecystectomy, Colonoscopy , EGD, Esophageal Dilatation, Hernia, Abdominal, Gisela Fundoplication Other GI Surgeries/Procedures: lap RNY on 12-31-15 Social & Family History - Family History Family Medical History: Noncontributory HEENT: Reports: Cataract, Hearing Impairment, Impaired Vision Cardiac: Reports: CAD, Hypertension Respiratory: Reports: COPD GI: Reports: None : Reports: None OBGYN: Reports: None Musculoskeletal: Reports: Arthritis, Gout Neurological: Reports: None Psychiatric: Reports: Anxiety Endocrine/Metabolic: Reports: Diabetes, Type I, Diabetes, type II Hematologic: Reports: None Immunologic: Reports: None Dermatologic: Reports: None Oncologic: Reports: Prostate - Tobacco Use Smoking Status *Q: Former Smoker Years of Tobacco use: 30 Packs/Tins Daily: 1 Used Tobacco, but Quit: Yes Month/Year Tobacco Last Used: 16 yrs Second Hand Smoke Exposure: No - Caffeine Use Caffeine Use: Reports: None Other Caffeine Use: 1/2 cup per day - Alcohol Use Days Per Week of Alcohol Use: 7 Number of Drinks Per Day: 4 Total Drinks Per Week: 28 - Recreational Drug Use Recreational Drug Use: No Drug Use in Last 12 Months: Yes Recreational Drug Type: Reports: Other (see below) Other Recreational Drug Type: used medical marijuana last night but didn't do anything for him Recreational Drug Use Frequency: Daily ED ROS GENERAL - Review of Systems Review Of Systems: See Below Constitutional: Reports: Weakness. Denies: Fever, Chills HEENT: Reports: No Symptoms Respiratory: Reports: No Symptoms Cardiovascular: Reports: No Symptoms GI/Abdominal: Reports: Nausea, Vomiting : Reports: No Symptoms Musculoskeletal: Reports: No Symptoms Skin: Reports: No Symptoms Neurological: Reports: No Symptoms ED EXAM, GI/ABD - Physical Exam Exam: See Below Exam Limited By: No Limitations General Appearance: Alert, WD/WN, No Apparent Distress Eyes: Bilateral: Normal Appearance Throat/Mouth: Normal Inspection, Normal Lips, Normal Teeth, Normal Gums, Normal Oropharynx, Normal Voice, No Airway Compromise Neck: Normal Inspection, Supple, Non-Tender, Full Range of Motion Respiratory/Chest: No Respiratory Distress, Lungs Clear, Normal Breath Sounds, No Accessory Muscle Use Cardiovascular: Regular Rate, Rhythm, No Murmur GI/Abdominal Exam: Soft, Non-Tender Course - Vital Signs Last Recorded V/S: Last Vital Signs Temp 96.6 F 01/25/18 14:55 Pulse 59 L 01/25/18 15:30 Resp 17 01/25/18 14:55 BP 116/74 01/25/18 15:30 Pulse Ox 100 01/25/18 15:30 - Orders/Labs/Meds Orders: Active Orders 24 hr Category Date Time Status MVI, Adult with Vitamin K [Infuvite Adult] 10 ml Med 01/25/18 14:45 Active Chromium/Copper/Phill/Selen/Zn [Multitrace-5 Concentrate ] 1 ml Thiamine [Vitamin B-1] 100 mg Dextrose 5%-Lactated Ringers 1,000 ml IV ONETIME Medication Orders Multivitamins/Minerals 10 ml/Chromium/Copper/Manganese/Seleni/Zn 1 ml/ Thiamine HCl 100 mg/ Dextrose/Lactated Ringer's 1,012 mls @ 500 mls/hr IV ONETIME ONE Stop: 01/25/18 16:46 Last Admin: 01/25/18 14:48 Dose: 500 mls/hr Labs: Laboratory Tests 01/25/18 01/25/18 01/25/18 Range/Units 14:33 14:33 14:33 WBC 5.4 (4.5-11.0) K/uL RBC 3.96 L (4.30-5.90) M/uL Hgb 13.0 (12.0-15.0) g/dL Hct 37.2 L (40.0-54.0) % MCV 94 (80-98) fL MCH 33 H (27-31) pg MCHC 35 (32-36) % Plt Count 126 L (150-400) K/uL Neut % (Auto) 65 (36-66) % Lymph % (Auto) 22 L (24-44) % [place] % (Auto) 13 H (2-6) % Eos % (Auto) 1 L (2-4) % Baso % (Auto) 0 (0-1) % Sodium 132 L (140-148) mmol/L Potassium 4.6 (3.6-5.2) mmol/L Chloride 97 L (100-108) mmol/L Carbon Dioxide 28 (21-32) mmol/L Anion Gap 11.6 (5.0-14.0) mmol/L BUN 12 D (7-18) mg/dL Creatinine 0.7 L (0.8-1.3) mg/dL Est Cr Clr Drug Dosing 110.88 mL/min Estimated GFR (MDRD) > 60 (>60) Glucose 128 H (74-106) mg/dL Lactic Acid 1.8 (0.4-2.0) mmol/L Calcium 8.2 L (8.5-10.1) mg/dL Total Bilirubin 1.1 H D (0.2-1.0) mg/dL AST 255 H D (15-37) U/L ALT 121 H (12-78) U/L Alkaline Phosphatase 182 H (46-116) U/L Total Protein 5.5 L (6.4-8.2) g/dL Albumin 2.7 L (3.4-5.0) g/dL Globulin 2.8 (2.3-3.5) g/dL Albumin/Globulin Ratio 1.0 L (1.2-2.2) Urine Color Urine Appearance Urine pH (4.5-8.0) Ur Specific [place] (1.008-1.030) Urine Protein (NEGATIVE) mg/dL Urine Glucose (UA) (NEGATIVE) mg/dL Urine Ketones (NEGATIVE) mg/dL Urine Occult Blood (NEGATIVE) Urine Nitrite (NEGAITVE) Urine Bilirubin (NEGATIVE) Urine Urobilinogen (NORMAL) mg/dL Ur Leukocyte Esterase (NEGATIVE) Urine RBC (0-5) Urine WBC (0-5) Ur Epithelial Cells Amorphous Sediment Urine Bacteria Urine Mucus 01/25/18 Range/Units 14:52 WBC (4.5-11.0) K/uL RBC (4.30-5.90) M/uL Hgb (12.0-15.0) g/dL Hct (40.0-54.0) % MCV (80-98) fL MCH (27-31) pg MCHC (32-36) % Plt Count (150-400) K/uL Neut % (Auto) (36-66) % Lymph % (Auto) (24-44) % [place] % (Auto) (2-6) % Eos % (Auto) (2-4) % Baso % (Auto) (0-1) % Sodium (140-148) mmol/L Potassium (3.6-5.2) mmol/L Chloride (100-108) mmol/L Carbon Dioxide (21-32) mmol/L Anion Gap (5.0-14.0) mmol/L BUN (7-18) mg/dL Creatinine (0.8-1.3) mg/dL Est Cr Clr Drug Dosing mL/min Estimated GFR (MDRD) (>60) Glucose (74-106) mg/dL Lactic Acid (0.4-2.0) mmol/L Calcium (8.5-10.1) mg/dL Total Bilirubin (0.2-1.0) mg/dL AST (15-37) U/L ALT (12-78) U/L Alkaline Phosphatase (46-116) U/L Total Protein (6.4-8.2) g/dL Albumin (3.4-5.0) g/dL Globulin (2.3-3.5) g/dL Albumin/Globulin Ratio (1.2-2.2) Urine Color Yellow Urine Appearance Clear Urine pH 6.0 (4.5-8.0) Ur Specific [place] 1.010 (1.008-1.030) Urine Protein Negative (NEGATIVE) mg/dL Urine Glucose (UA) Normal (NEGATIVE) mg/dL Urine Ketones Negative (NEGATIVE) mg/dL Urine Occult Blood Moderate (NEGATIVE) Urine Nitrite Negative (NEGAITVE) Urine Bilirubin Small (NEGATIVE) Urine Urobilinogen 8 (NORMAL) mg/dL Ur Leukocyte Esterase Negative (NEGATIVE) Urine RBC 0-5 (0-5) Urine WBC 0-5 (0-5) Ur Epithelial Cells Rare Amorphous Sediment Not seen Urine Bacteria Not seen Urine Mucus Not seen Meds: Medications Generic Name Dose Route Start Last Admin Trade Name Lina PRN Reason Stop Dose Admin Multivitamins/Minerals 10 ml/ 1,012 mls @ 500 mls/hr 01/25/18 14:45 01/25/18 14:48 Chromium/Copper/Manganese/ IV 01/25/18 16:46 500 mls/hr Seleni/Zn 1 ml/ Thiamine HCl ONETIME ONE Administration 100 mg/ Dextrose/Lactated Ringer's Departure - Departure Time of Disposition: 16:34 Disposition: Home, Self-Care 01 Condition: Good Clinical Impression: Weakness - Discharge Information Referrals: Juanito Zimmerman, [employer] [Primary Care Provider] - Forms: ED Department Discharge Additional Instructions: Continue regular medications, please report to outpatient surgery for EGD with possible dilation on of this week with Dr. Augustin - My Orders Last 24 Hours: My Active Orders 01/25/18 14:45 MVI, Adult with Vitamin K [Infuvite Adult] 10 ml Chromium/Copper/Phill/Selen/Zn [ Multitrace-5 Concentrate] 1 ml Thiamine [Vitamin B-1] 100 mg Dextrose 5%- Lactated Ringers 1,000 ml IV ONETIME - Assessment/Plan Last 24 Hours: My Active Orders 01/25/18 14:45 MVI, Adult with Vitamin K [Infuvite Adult] 10 ml Chromium/Copper/Phill/Selen/Zn [ Multitrace-5 Concentrate] 1 ml Thiamine [Vitamin B-1] 100 mg Dextrose 5%- Lactated Ringers 1,000 ml IV ONETIME Plan: Assessment Acuity = acute Site and laterality = weakness, complicated in a patient with known history gastric bypass Etiology = unclear etiology Manifestations = none Location of injury = Home Lab values = CBC unremarkable, sodium low at 132 consistent hyponatremia, lactic acid normal at 1.8 total bilirubin elevated at 1.1 consistent hyperbilirubinemia, AST elevated 255 ALTs elevated 121 consistent elevated liver enzymes albumin low at 2.7 consistent hypoalbuminemia urinalysis unremarkable Plan He did receive a multivitamin bag 1 L of lactated Ringer's, called discussed case with Dr. 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 voice recognition software please call with any questions on syntax or young.
[2018-01-25] MEDS ORDERED: MVI, Adult with Vitamin K 10 ML, Chromium/Copper/Mang/Selen/Zn 1 ML, Thiamine 100 MG in... IV ONE ×4 (14:45)
[2018-01-25 15:30] VITALS: BP 116/74
== END 2018-01-25 16:57 | disposition home or self-care (01) ==
LOC: JP.ED 13:09
DX: R53.1 Weakness (principal); R11.2 Nausea with vomiting, unspecified; E86.0 Dehydration; E11.9 Type 2 diabetes mellitus without complications; E78.00 Pure hypercholesterolemia, unspecified; I25.2 Old myocardial infarction; Z98.890 Other specified postprocedural states; Z79.82 Long term (current) use of aspirin; Z79.899 Other long term (current) drug therapy; Z87.891 Personal history of nicotine dependence
CPT/HCPCS: 36415; 80053; 81001; 83605; 85025; 96365; 96366; 99284; J3411; J7042

== ENCOUNTER 2018-01-27 08:37 | Observation (INO) | payer MEDICAID ==
[2018-01-27] MEDS ORDERED: Cyanocobalamin (Vitamin B12) 1,000 MCG/ML SDV IM ONE (09:15)
[2018-01-27] MEDS ORDERED: Lactated Ringers 1,000 ML IV SCH (09:15)
[2018-01-27] MEDS ORDERED: Midazolam 1 MG/ML 2 ML SDV ONE (09:53)
[2018-01-27] MEDS ORDERED: Propofol 200 MG/20 ML SDV ONE (09:53)
[2018-01-27] MEDS ORDERED: fentaNYL 100 MCG/2 ML SDV ONE (09:53)
[2018-01-27] MEDS ORDERED: MVI, Adult with Vitamin K 10 ML, Thiamine 100 MG, Chromium/Copper/Mang/Selen/Zn 1 ML in... IV ONE ×4 (10:15)
[2018-01-27] MEDS ORDERED: MVI, Adult with Vitamin K 10 ML, Thiamine 200 MG, Chromium/Copper/Mang/Selen/Zn 1 ML in... IV ONE ×4 (10:15)
[2018-01-27] MEDS: Glycopyrrolate 0.2 MG/ML 2 ML SDV IVPUSH ONE ×2 (11:00→13:54)
[2018-01-27] MEDS ORDERED: Zolpidem 5 MG Tab PO PRN (13:18)
[2018-01-27] MEDS ORDERED: oxyCODONE 5 MG Tab PO PRN (13:18)
[2018-01-27] MEDS ORDERED: MVI, Adult with Vitamin K 10 ML, Thiamine 100 MG, Folic Acid 1 MG, Magnesium Sulfate 2 ... IV ONE ×5 (13:23)
--- NOTE | 2018-01-27 13:27 | PCM.CONS ---
H&P History of Present Illness - General Date of Service: 01/27/18 Admit Problem/Dx: Admission Diagnosis/Problem Admission Diagnosis/Problem Liver function tests abnormal Source of Information: Patient, Family, Old Records, RN Notes Reviewed History Limitations: Reports: No Limitations - History of Present Illness Initial Comments - Free Text/Narative: Mr. Tijerina is a 62YOM who I have been asked to see by Dr. Augustin for futher evaluation of elevated LFTs. He is s/p gastric bypass in 2015, at that time was found to have fatty liver by biopsy. CT scan of the abdomin was obtained 09/24 for eval. of LFTs, it showed evidence of fatty liver. He admits to daily ETOH intake of a least 2.5 to 5 liters of wine, for the past few years. For the past 4 days has experienced nausea with cramping abdominal pain. He was admitted to outpatient today for EGD, lab results showed an increase in LFTs over the past few days. Middle Abdominal Pain Score (Numeric/FACES): 1 - Related Data Allergies/Adverse Reactions: Allergies Allergy/AdvReac Type Severity Reaction Status Date / Time No Known Allergies Allergy Verified 01/27/18 09:02 Home Medications: Home Meds Aspirin [Vince Chewable Aspirin] 81 mg PO DAILY 12/08/14 [History] Gabapentin [Neurontin] 300 mg PO TID 11/02/17 [History] Magnesium Oxide [Magnesium] 400 mg PO DAILY 11/02/17 [History] Cetirizine [ZyrTEC] 10 mg PO DAILY PRN 01/25/18 [History] Diphenoxylate HCl/Atropine [Lomotil] 1 tab PO ASDIRECTED PRN 01/25/18 [History] Omeprazole 40 mg PO DAILY 01/25/18 [History] PARoxetine [Paxil] 20 mg PO DAILY 01/25/18 [History] Tamsulosin [Flomax] 0.4 mg PO DAILY 01/25/18 [History] Zolpidem Tartrate [Ambien] 10 mg PO DAILY 01/25/18 [History] oxyCODONE 10 mg PO BID PRN 01/25/18 [History] Past Medical History HEENT History: Reports: Allergic Rhinitis, Hard of Hearing, Impaired Vision Other HEENT History: wears glasses Cardiovascular History: Reports: Bypass, CAD, High Cholesterol, Hypertension, [place] Respiratory History: Reports: Asthma, COPD, SOB Other Respiratory History: patient states no longer has respiratory problems; has been ok for past year Gastrointestinal History: Reports: Cholelithiasis, Chronic Constipation, Chronic Diarrhea, GERD, Hiatal Hernia, Irritable Bowel Syndrome, Pancreatitis, Other (See Below) Other Gastrointestinal History: colitis Genitourinary History: Reports: None Musculoskeletal History: Reports: Fracture, Neck Pain, Chronic, Osteoarthritis Neurological History: Reports: TIA Psychiatric History: Reports: Addiction, Anxiety, Depression, Panic Attack Other Psychiatric History: denies this history Endocrine/Metabolic History: Reports: Diabetes, Type II, Vitamin D Deficiency Other Endocrine/Metabolic History: has not had diabetic issues since bariatric surgery Hematologic History: Reports: Anemia, B12 Deficiency, Blood Transfusion(s) Immunologic History: Reports: None Oncologic (Cancer) History: Reports: None Dermatologic History: Reports: Other (See Below) Other Dermatologic History: occasional rash - Infectious Disease History Infectious Disease History: Reports: Chicken Pox, Measles, Mumps Other Infectious Disease History: unknown - Past Surgical History Head Surgeries/Procedures: Reports: None HEENT Surgical History: Reports: Other (See Below) Other HEENT Surgeries/Procedures: scar tissue removed from nose Cardiovascular Surgical History: Reports: Coronary Artery Bypass, Other (See Below) Other Cardiovascular Surgeries/Procedures: quad bypass-2011 veins removed left arm= No BP or IV-poor circulation GI Surgical History: Reports: Bariatric Procedure, Cholecystectomy, Colonoscopy , EGD, Esophageal Dilatation, Hernia, Abdominal, Gisela Fundoplication Other GI Surgeries/Procedures: lap RNY on 12-31-15 Endocrine Surgical History: Reports: None Neurological Surgical History: Reports: None Musculoskeletal Surgical History: Reports: None Social & Family History - Family History Family Medical History: Noncontributory HEENT: Reports: Cataract, Hearing Impairment, Impaired Vision Cardiac: Reports: CAD, Hypertension Respiratory: Reports: COPD GI: Reports: None : Reports: None OBGYN: Reports: None Musculoskeletal: Reports: Arthritis, Gout Neurological: Reports: None Psychiatric: Reports: Anxiety Endocrine/Metabolic: Reports: Diabetes, Type I, Diabetes, type II Hematologic: Reports: None Immunologic: Reports: None Dermatologic: Reports: None Oncologic: Reports: Prostate - Tobacco Use Smoking Status *Q: Former Smoker Years of Tobacco use: 30 Packs/Tins Daily: 1 Used Tobacco, but Quit: Yes Month/Year Tobacco Last Used: yrs Second Hand Smoke Exposure: No - Caffeine Use Caffeine Use: Reports: None Other Caffeine Use: 1/2 cup per day - Alcohol Use Days Per Week of Alcohol Use: 7 Number of Drinks Per Day: 6 Total Drinks Per Week: 42 Date of Last Drink: 01/26/18 - Recreational Drug Use Recreational Drug Use: No Drug Use in Last 12 Months: Yes Recreational Drug Type: Reports: Other (see below) Other Recreational Drug Type: used medical marijuana last night but didn't do anything for him Recreational Drug Use Frequency: Daily H&P Review of Systems - Review of Systems: Review Of Systems: See Below General: Reports: Weakness. Denies: Fever, Chills HEENT: Reports: No Symptoms Pulmonary: Reports: No Symptoms Cardiovascular: Reports: No Symptoms Gastrointestinal: Reports: Abdominal Pain, Anorexia, Nausea. Denies: Black Stool, Bloody Stool, Constipation, Difficulty Swallowing, Distension, Vomiting Genitourinary: Reports: No Symptoms Musculoskeletal: Reports: No Symptoms Skin: Reports: No Symptoms Psychiatric: Reports: No Symptoms Neurological: Reports: No Symptoms Hematologic/Lymphatic: Reports: No Symptoms Immunologic: Reports: No Symptoms Exam - Exam Exam: See Below - Vital Signs Vital Signs: Last Vital Signs Temp 98.1 F 01/27/18 13:00 Pulse 84 01/27/18 13:00 Resp 15 01/27/18 13:00 BP 136/79 01/27/18 13:00 Pulse Ox 100 01/27/18 13:00 Weight: 170 lb - Exam General: Alert, Oriented, Cooperative HEENT: Conjunctiva Clear, Hearing Intact, Mucosa Moist & [place], Normal Nasal Septum, Posterior Pharynx Clear, Pupils Equal Neck: Supple, Trachea Midline, +2 Carotid Pulse wo Bruit Lungs: Clear to Auscultation, Normal Respiratory Effort Cardiovascular: Regular Rate, Regular Rhythm, Normal S1, Normal S2 GI/Abdominal Exam: Soft, No Organomegaly, Tender. No: Distended, Guarding, Rigid, Rebound Back Exam: Normal Inspection, Full Range of Motion Extremities: Non-Tender, No Pedal Edema Skin: Warm, Dry, Intact - Patient Data Lab Results Last 24 hrs: Laboratory Results - last 24 hr 01/27/18 01/27/18 01/27/18 Range/Units 09:08 09:08 09:08 WBC 9.2 (4.5-11.0) K/uL RBC 4.50 (4.30-5.90) M/uL Hgb 14.5 (12.0-15.0) g/dL Hct 41.3 (40.0-54.0) % MCV 92 (80-98) fL MCH 32 H (27-31) pg MCHC 35 (32-36) % Plt Count 184 (150-400) K/uL Sodium 131 L (140-148) mmol/L Potassium 3.8 (3.6-5.2) mmol/L Chloride 93 L (100-108) mmol/L Carbon Dioxide 29 (21-32) mmol/L Anion Gap 12.8 (5.0-14.0) mmol/L BUN 11 (7-18) mg/dL Creatinine 1.0 (0.8-1.3) mg/dL Est Cr Clr Drug Dosing 82.95 mL/min Estimated GFR (MDRD) > 60 (>60) Glucose 172 H (74-106) mg/dL Calcium 9.0 (8.5-10.1) mg/dL Total Bilirubin 3.9 H D (0.2-1.0) mg/dL AST 259 H (15-37) U/L ALT 142 H (12-78) U/L Alkaline Phosphatase 189 H (46-116) U/L Total Protein 6.4 (6.4-8.2) g/dL Albumin 3.1 L (3.4-5.0) g/dL Globulin 3.3 (2.3-3.5) g/dL Albumin/Globulin Ratio 0.9 L (1.2-2.2) Amylase 12 L (25-115) U/L Lipase 46 L (73-393) U/L Result Diagrams: 01/27/18 09:08 01/27/18 09:08 Consult PN Assessment/Plan Procedures: Procedures AIRWAY INHALATION TREATMENT (12/31/14) ASSAY ALKALINE PHOSPHATASE (12/31/14) ASSAY OF AMYLASE (12/31/14) ASSAY OF FERRITIN (11/02/17) ASSAY OF FOLIC ACID SERUM (09/14/17) ASSAY OF LIPASE (12/09/17) ASSAY OF MAGNESIUM (11/02/17) ASSAY OF NATRIURETIC PEPTIDE (12/31/14) ASSAY OF PHOSPHORUS (11/02/17) ASSAY OF VITAMIN B-1 (09/14/17) ASSAY THYROID STIM HORMONE (06/14/17) BILIRUBIN TOTAL (12/31/14) BLOOD TYPING SEROLOGIC ABO (11/15/14) BLOOD TYPING SEROLOGIC RH(D) (11/15/14) COMPLETE CBC AUTOMATED (11/02/17) COMPLETE CBC W/AUTO DIFF WBC (12/09/17) COMPREHEN METABOLIC PANEL (12/09/17) CT ABD & PELV W/CONTRAST (10/28/17) CT THORAX W/DYE (09/14/14) DRUG TEST PRSMV DIR OPT OBS (12/09/17) ECHO EXAM OF ABDOMEN (03/01/17) EGD DILATE STRICTURE (11/02/17) EGD REMOVE FOREIGN BODY (06/29/16) EMERGENCY DEPT VISIT (12/09/17) ESOPH EGD DILATION <30 MM (02/13/16) EXC TR-EXT B9+LIANNA 1.1-2 CM (12/31/14) GLUCOSE BLOOD TEST (12/31/14) HEPATIC FUNCTION PANEL (06/14/17) HEPATOBIL SYST IMAGE W/DRUG (12/17/14) HYDRATE IV INFUSION ADD-ON (06/08/16) INTMD RPR S/A/T/EXT 2.6-7.5 (12/31/14) LAP VENT/ABD HERNIA REPAIR (12/31/14) LAPAROSCOPIC CHOLECYSTECTOMY (12/31/14) MEASURE BLOOD OXYGEN LEVEL (12/31/14) METABOLIC PANEL TOTAL CA (06/14/17) RBC ANTIBODY SCREEN (11/15/14) REMOVAL OF FOREIGN BODY (03/15/17) ROUTINE VENIPUNCTURE (12/09/17) THER/PROPH/DIAG INJ IV PUSH (06/08/16) TISSUE EXAM BY PATHOLOGIST (03/15/17) TISSUE EXAM BY PATHOLOGIST (12/31/14) TISSUE EXAM BY PATHOLOGIST (12/31/14) TISSUE EXAM BY PATHOLOGIST (12/31/14) TX/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/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 (06/08/16) URINALYSIS AUTO W/SCOPE (12/09/17) VITAMIN B-12 (11/02/17) Problem List Initiated/Reviewed/Updated: Yes My Orders Last 24 Hours: My Active Orders 01/27/18 12:40 Abdomen Ltd [US] Stat 03/22/18 13:23 CIWAA Assessment [RC] Q4H Notify Provider [RC] PRN MVI, Adult with Vitamin K [Infuvite Adult] 10 ml Thiamine [Vitamin B-1] 100 mg Folic Acid 1 mg Magnesium Sulfate [Magnesium Sulfate 50%] 2 gm Sodium Chloride 0.9% [Normal Saline] 1,000 ml IV ONETIME 01/27/18 13:30 Folic Acid 1 mg PO DAILY Gabapentin [Neurontin] 400 mg PO Q8H LORazepam [Ativan] See Protocol IV ASDIRECTED LORazepam [Ativan] See Protocol PO ASDIRECTED Thiamine [Vitamin B-1] 100 mg PO DAILY Plan: ASSESMENT AND RECOMENDATIONS ACUTE ON CHRONIC LIVER INJURY-likely secondary to fatty liver and longstanding daily ETOH abuse. US shows no evidence of obstruction, lipase is normal. -pt encouraged to stop all ETOH use -recheck labs in am -further eval; ferritin, iron/iron binding, ceruloplasmin, Hep B surface Ab, Hep B core Ab, Hep C Ab, MACY, SPEP, Anti-smooth muscle Ab, Anti-mitochondrial Ab. ETOH ABUSE/DEPENDENCE-will need to monitor closely for withdrawl -ETOH withdrawl protocol -Gabapentin 400mg q8hr for 4 days, then 200mg q8hr for additional 4 days Requesting Provider: HILARIO Date Consult Requested: 01/27/18 Reason for Consult: Elevated LFTs Patient History Reviewed: Yes
[2018-01-27] MEDS ORDERED: LORazepam 1 MG Tab PO SCH (13:30)
[2018-01-27] MEDS ORDERED: LORazepam 2 MG/ML SDV IV SCH (13:30)
--- NOTE | 2018-01-27 14:04 | US ---
Ultrasound RUQ There is diffuse increase echogenicity throughout the liver. The finding is consistent with fatty inf iltration of the liver. No focal hepatic lesions are demonstrated. The gallbladder is surgically abse nt. The common bile duct measures within normal limits measuring 5 mm. The visualized portions of the pancreas are unremarkable. The right kidney is normal in size measuring 10 mm. There is no hydroneph rosis. There are no stones seen. The abdominal aorta and IVC are unremarkable. Impression: 1. Fatty infiltration of the liver. 2. Prior cholecystectomy.
[2018-01-27] MEDS: Dextrose 5%-Lactated Ringers 1,000 ML IV SCH ×2 (15:05→22:59)
[2018-01-27] MEDS: Gabapentin 400 MG Cap PO SCH ×2 (15:06→20:59)
[2018-01-27] MEDS: Folic Acid 1 MG Tab PO SCH (15:06)
[2018-01-27] MEDS: Thiamine 100 MG Tab PO SCH (15:07)
[2018-01-27] MEDS ORDERED: Tamsulosin 0.4 MG Cap.ER PO SCH (21:00)
[2018-01-28] MEDS: Gabapentin 400 MG Cap PO SCH (05:56)
[2018-01-28] MEDS ORDERED: Pantoprazole 40 MG Tab.CR PO SCH (07:30)
[2018-01-28] MEDS ORDERED: Potassium Chloride 20 MEQ Tab.ER PO ONE (08:25)
--- NOTE | 2018-01-28 08:38 | PCM.DCSUM1 ---
Discharge Summary - Hospital Course HPI Initial Comments: Ryne Tijerina presented to the ACU to have an EGD with Dilation. A CMP was repeated and his bilirubin 3.9. He was having upper abdominal pain. Ryne was admitted to 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 [CONS] Routine Comment: Physician Instructions: Quantity: 01/27/18 12:29 Consult to Physician [CONS] Routine Consulting Provider: Paulino Kramer Call Completed to Consulting Physician: Yes Reason for Consult: worsening hepatic function Person Notified: reji Date Notified: 01/27/18 Time Notified: 12:30 Special Instructions: via phone message - Patient Instructions Diet, Other: Step 2 Gastric Bypass diet and gradually progress Activity: As Tolerated Showering/Bathing: March Shower Notify Provider of: Fever, Increased Pain - Discharge Plan Home Medications: Home Meds Aspirin [Vinec Chewable Aspirin] 81 mg PO DAILY 12/08/14 [History] Gabapentin [Neurontin] 300 mg PO TID 11/02/17 [History] Magnesium Oxide [Magnesium] 400 mg PO DAILY 11/02/17 [History] Cetirizine [ZyrTEC] 10 mg PO DAILY PRN 01/25/18 [History] Diphenoxylate HCl/Atropine [Lomotil] 1 tab PO ASDIRECTED PRN 01/25/18 [History] Omeprazole 40 mg PO DAILY 01/25/18 [History] PARoxetine [Paxil] 20 mg PO DAILY 01/25/18 [History] Tamsulosin [Flomax] 0.4 mg PO DAILY 01/25/18 [History] Zolpidem Tartrate [Ambien] 10 mg PO DAILY 01/25/18 [History] oxyCODONE 10 mg PO BID PRN 01/25/18 [History] Referrals: Charlotte Calderon PA-C [Physician Privacy Director] - 02/16/18 11:00 am Juanito Zimmerman NP [Primary Care Provider] - 02/01/18 9:00 am - Patient Data Vitals - Most Recent: Last Vital Signs Temp 96.7 F 01/28/18 07:00 Pulse 60 01/28/18 07:00 Resp 18 03/23/18 07:00 BP 115/62 01/28/18 07:00 Pulse Ox 96 01/28/18 07:00 Weight - Most Recent: 170 lb I&O - Last 24 hours: Intake & Output 01/27/18 01/28/18 01/28/18 22:59 06:59 14:59 Intake Total 440 2888 Output Total 500 Balance 440 2388 Lab Results - Last 24 hrs: Laboratory Results - last 24 hr 01/27/18 01/27/18 01/27/18 Range/Units 09:08 09:08 09:08 WBC 9.2 (4.5-11.0) K/uL RBC 4.50 (4.30-5.90) M/uL Hgb 14.5 (12.0-15.0) g/dL Hct 41.3 (40.0-54.0) % MCV 92 (80-98) fL MCH 32 H (27-31) pg MCHC 35 (32-36) % Plt Count 184 (150-400) K/uL PT (9.5-12.0) sec INR (0.80-1.20) Sodium 131 L (140-148) mmol/L Potassium 3.8 (3.6-5.2) mmol/L Chloride 93 L (100-108) mmol/L Carbon Dioxide 29 (21-32) mmol/L Anion Gap 12.8 (5.0-14.0) mmol/L BUN 11 (7-18) mg/dL Creatinine 1.0 (0.8-1.3) mg/dL Est Cr Clr Drug Dosing 82.95 mL/min Estimated GFR (MDRD) > 60 (>60) Glucose 172 H (74-106) mg/dL Calcium 9.0 (8.5-10.1) mg/dL Iron (65-175) ug/dL TIBC (250-450) ug/dl % Saturation (20-55) % Ferritin (8-388) ng/ml Total Bilirubin 3.9 H D (0.2-1.0) mg/dL AST 259 H (15-37) U/L ALT 142 H (12-78) U/L Alkaline Phosphatase 189 H (46-116) U/L Total Protein 6.4 (6.4-8.2) g/dL Albumin 3.1 L (3.4-5.0) g/dL Globulin 3.3 (2.3-3.5) g/dL Albumin/Globulin Ratio 0.9 L (1.2-2.2) Amylase 12 L (25-115) U/L Lipase 46 L (73-393) U/L 01/28/18 01/28/18 01/28/18 Range/Units 04:17 04:17 04:17 WBC (4.5-11.0) K/uL RBC (4.30-5.90) M/uL Hgb (12.0-15.0) g/dL Hct (40.0-54.0) % MCV (80-98) fL MCH (27-31) pg MCHC (32-36) % Plt Count (150-400) K/uL PT 12.1 H (9.5-12.0) sec INR 1.13 (0.80-1.20) Sodium 132 L (140-148) mmol/L Potassium 3.4 L (3.6-5.2) mmol/L Chloride 102 (100-108) mmol/L Carbon Dioxide 29 (21-32) mmol/L Anion Gap 4.4 L (5.0-14.0) mmol/L BUN 7 (7-18) mg/dL Creatinine 0.8 (0.8-1.3) mg/dL Est Cr Clr Drug Dosing 103.08 mL/min Estimated GFR (MDRD) > 60 (>60) Glucose 163 H (74-106) mg/dL Calcium 8.6 (8.5-10.1) mg/dL Iron 122 (65-175) ug/dL TIBC 135 L (250-450) ug/dl % Saturation 90 H (20-55) % Ferritin (8-388) ng/ml Total Bilirubin 2.2 H (0.2-1.0) mg/dL AST 155 H (15-37) U/L ALT 95 H (12-78) U/L Alkaline Phosphatase 136 H (46-116) U/L Total Protein 5.0 L (6.4-8.2) g/dL Albumin 2.2 L (3.4-5.0) g/dL Globulin 2.8 (2.3-3.5) g/dL Albumin/Globulin Ratio 0.8 L (1.2-2.2) Amylase (25-115) U/L Lipase (73-393) U/L 01/28/18 Range/Units 04:17 WBC (4.5-11.0) K/uL RBC (4.30-5.90) M/uL Hgb (12.0-15.0) g/dL Hct (40.0-54.0) % MCV (80-98) fL MCH (27-31) pg MCHC (32-36) % Plt Count (150-400) K/uL PT (9.5-12.0) sec INR (0.80-1.20) Sodium (140-148) mmol/L Potassium (3.6-5.2) mmol/L Chloride (100-108) mmol/L Carbon Dioxide (21-32) mmol/L Anion Gap (5.0-14.0) mmol/L BUN (7-18) mg/dL Creatinine (0.8-1.3) mg/dL Est Cr Clr Drug Dosing mL/min Estimated GFR (MDRD) (>60) Glucose (74-106) mg/dL Calcium (8.5-10.1) mg/dL Iron (65-175) ug/dL TIBC (250-450) ug/dl % Saturation (20-55) % Ferritin 1648 H (8-388) ng/ml Total Bilirubin (0.2-1.0) mg/dL AST (15-37) U/L ALT (12-78) U/L Alkaline Phosphatase (46-116) U/L Total Protein (6.4-8.2) g/dL Albumin (3.4-5.0) g/dL Globulin (2.3-3.5) g/dL Albumin/Globulin Ratio (1.2-2.2) Amylase (25-115) U/L Lipase (73-393) U/L Med Orders - Current: Current Medications Aspirin (Halfprin) 81 mg PO DAILY [facility] Folic Acid (Folic Acid) 1 mg PO DAILY [facility] Last Admin: 01/27/18 15:06 Dose: 1 mg Gabapentin (Neurontin) 400 mg PO Q8H [facility] Last Admin: 01/28/18 05:56 Dose: 400 mg Dextrose/Lactated Ringer's (Dextrose 5%-Lactated Ringers) 1,000 mls @ 125 mls/ hr IV ASDIRECTED WENDY Last Admin: 01/27/18 22:59 Dose: 125 mls/hr Lorazepam (Ativan) 0 mg PO ASDIRECTED WENDY PRN Reason: Protocol Lorazepam (Ativan) 0 mg IV ASDIRECTED WENDY PRN Reason: Protocol Oxycodone HCl (Oxycodone) 10 mg PO Q6H PRN PRN Reason: Pain Pantoprazole Sodium (Protonix) 40 mg PO ACBREAKFAST WENDY Paroxetine HCl (Paxil) 20 mg PO DAILY [facility] Tamsulosin HCl (Flomax) 0.4 mg PO BEDTIME WEND[facility] Last Admin: 01/27/18 20:59 Dose: 0.4 mg Thiamine HCl (Vitamin B-1) 100 mg PO DAILY [facility] Last Admin: 01/27/18 15:07 Dose: 100 mg Zolpidem Tartrate (Ambien) 10 mg PO BEDTIME PRN PRN Reason: SLEEP Discontinued Medications Cyanocobalamin (Vitamin B12) 1,000 mcg IM ONETIME ONE Stop: 01/27/18 09:16 Last Admin: 01/27/18 10:02 Dose: 1,000 mcg Fentanyl (Sublimaze) Confirm Administered Dose 100 mcg .ROUTE .STK-MED ONE Stop: 01/27/18 09:54 Gabapentin (Neurontin) 300 mg PO DAILY [facility] Glycopyrrolate (Glycopyrrolate) 0.4 mg IVPUSH ONETIME ONE Stop: 01/27/18 09:46 Last Admin: 01/27/18 13:54 Dose: Not Given Lactated Ringer's (Ringers, Lactated) 1,000 mls @ 999 mls/hr IV BOLUS [facility] Last Admin: 01/27/18 09:30 Dose: 999 mls/hr Multivitamins/Minerals 10 ml/Thiamine HCl 100 mg/ Chromium/Copper/Manganese/ Seleni/Zn 1 ml/ Lactated Ringer's 1,012 mls @ 500 mls/hr IV ONETIME ONE Stop: 01/27/18 12:16 Last Admin: 01/27/18 10:25 Dose: 500 mls/hr Midazolam HCl (Versed 1 Mg/Ml) Confirm Administered Dose 2 mg .ROUTE .STK-MED ONE Stop: 01/27/18 09:54 Potassium Chloride (Klor-Con M20) 40 meq PO ONETIME ONE Stop: 01/28/18 08:26 Propofol (Diprivan 20 Ml) Confirm Administered Dose 200 mg .ROUTE .STK-MED ONE Stop: 01/27/18 09:54 *Q Meaningful Use (DIS) - VTE *Q VTE Criteria *Q: - Stroke *Q Stroke Criteria *Q: - AMI *Q AMI Criteria *Q:
[2018-01-28] MEDS: Folic Acid 1 MG Tab PO SCH (08:48)
[2018-01-28] MEDS: Thiamine 100 MG Tab PO SCH (08:48)
[2018-01-28] MEDS ORDERED: Aspirin 81 MG Tab.EC PO SCH (09:00)
[2018-01-28] MEDS ORDERED: Gabapentin 300 MG Cap PO SCH (09:00)
[2018-01-28] MEDS ORDERED: PARoxetine 20 MG Tab PO SCH (09:00)
[2018-01-28 11:31] VITALS: BP 133/75
--- NOTE | 2018-01-31 14:40 | OR ---
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 POSTOPERATIVE DIAGNOSIS: Moderate strictured gastrojejunostomy. OPERATIVE PROCEDURE: Upper GI endoscopy with dilation of gastrojejunostomy ([id number]). ANESTHESIA: IV sedation. INDICATION FOR PROCEDURE: The patient presents once again with symptoms suggestive of stricturing of his gastrojejunostomy. Plan is to proceed with an upper GI endoscopy with dilation as indicated. Potential risks including bleeding and perforation were discussed, and the patient wishes to proceed. DETAILS OF PROCEDURE: The patient was taken to the operating room and placed in a left lateral decubitus position. IV sedation was administered, after which the upper GI endoscope was passed orally through the length of the esophagus and into the gastric pouch. The patient was noted to have mild stricturing with the scope not quite being able to be passed across the anastomosis. Bard gastrointestinal balloon catheter was centered across the anastomosis and inflated to 45-[place] size. This was held in position for 1 minute, after which the balloon catheter was deflated and withdrawn. The scope could easily then be passed through the anastomosis. No complications were noted. The patient was taken to the recovery room in a satisfactory condition. The patient was noted to have worsening liver function tests with an elevation of the bilirubin from the 1.0s to the 3.9 range in the last 48 hours. Given this, the patient will be admitted for Internal Medicine consultation regarding the liver function issue. Jamari Augustin MD /[id number]
== END 2018-01-28 13:00 | disposition home or self-care (01) ==
LOC: UNDOADMIN 08:37 → JP.MS 08:37 → JP.SDS 08:37 → JP.MS 08:37 → EDSTATUS 10:45 → JP.MS 11:40 → UNDODISIN 01-28 13:00
PROVIDERS: ADMIT Surgery; ATTEND Surgery
DX: R94.5 Abnormal results of liver function studies (principal); K76.0 Fatty (change of) liver, not elsewhere classified; I25.10 Atherosclerotic heart disease of native coronary artery without angina pectoris; E78.00 Pure hypercholesterolemia, unspecified; I10 Essential (primary) hypertension; I25.2 Old myocardial infarction; J44.9 Chronic obstructive pulmonary disease, unspecified; K59.09 Other constipation; K21.9 Gastro-esophageal reflux disease without esophagitis; M19.90 Unspecified osteoarthritis, unspecified site; E11.9 Type 2 diabetes mellitus without complications; E55.9 Vitamin D deficiency, unspecified; E53.8 Deficiency of other specified B group vitamins; F41.9 Anxiety disorder, unspecified; F32.9 Major depressive disorder, single episode, unspecified; Z79.82 Long term (current) use of aspirin; Z79.899 Other long term (current) drug therapy; Z90.49 Acquired absence of other specified parts of digestive tract; Z95.1 Presence of aortocoronary bypass graft; Z98.84 Bariatric surgery status; Z98.890 Other specified postprocedural states; Z82.49 Family history of ischemic heart disease and other diseases of the circulatory system; Z82.61 Family history of arthritis; Z83.3 Family history of diabetes mellitus; Z83.6 Family history of other diseases of the respiratory system; Z87.891 Personal history of nicotine dependence
CPT/HCPCS: 36415; 76705; 76705-26; 80053; 82150; 82390; 82728; 83550; 83690; 84165; 85027; 85610; 86038; 86255; 86704; 86803; 87340; A9270-GY; J2250; J2704; J3010; J3411; J3420; J3490; J7042; J7120

== ENCOUNTER 2019-01-01 18:58 | Emergency (ER) | payer MEDICAID ==
[2019-01-01] MEDS ORDERED: Sodium Chloride 0.9% 10 ML Syringe FLUSH PRN (19:44)
[2019-01-01] MEDS ORDERED: Lactated Ringers 1,000 ML IV SCH (19:45)
--- NOTE | 2019-01-01 19:50 | EDM.PDOC ---
ED HPI GENERAL MEDICAL PROBLEM - General Chief Complaint: Syncope Stated Complaint: PASSED OUT AND FELL AT HOME Time Seen by Provider: 01/01/19 19:40 Source of Information: Reports: Patient, Family, RN Notes Reviewed History Limitations: Reports: No Limitations - History of Present Illness INITIAL COMMENTS - FREE TEXT/NARRATIVE: 63-year-old gentleman presents to the emergency department today following a syncopal event, he has had syncopal events for about a year this particular one he fell in the bathroom hit his for head on the countertop and partially split his lower lip open. He does admit to consuming alcohol he is currently grieving from the loss of 2 adult children - Related Data Allergies Allergy/AdvReac Type Severity Reaction Status Date / Time No Known Allergies Allergy Verified 01/01/19 19:16 Home Meds: Home Meds Aspirin [Vince Chewable Aspirin] 81 mg PO DAILY 12/08/14 [History] Gabapentin [Neurontin] 300 mg PO TID 11/02/17 [History] Magnesium Oxide [Magnesium] 400 mg PO DAILY 11/02/17 [History] Cetirizine [ZyrTEC] 10 mg PO DAILY PRN 01/25/18 [History] Diphenoxylate HCl/Atropine [Lomotil] 1 tab PO ASDIRECTED PRN 01/25/18 [History] Omeprazole 40 mg PO DAILY 01/25/18 [History] Tamsulosin [Flomax] 0.4 mg PO DAILY 01/25/18 [History] Zolpidem Tartrate [Ambien] 10 mg PO BEDTIME 01/25/18 [History] Disulfiram 250 mg PO DAILY #30 tab 01/28/18 [Rx] LORazepam 1 mg PO Q6H PRN 01/01/19 [History] PARoxetine [Paxil] 40 mg PO DAILY 01/01/19 [History] Past Medical History HEENT History: Reports: Allergic Rhinitis, Hard of Hearing, Impaired Vision Other HEENT History: wears glasses Cardiovascular History: Reports: Bypass, CAD, High Cholesterol, Hypertension, MS Respiratory History: Reports: Asthma, COPD, SOB Other Respiratory History: patient states no longer has respiratory problems; has been ok for past year Gastrointestinal History: Reports: Cholelithiasis, Chronic Constipation, Chronic Diarrhea, GERD, Hiatal Hernia, Irritable Bowel Syndrome, Pancreatitis, Other (See Below) Other Gastrointestinal History: colitis Musculoskeletal History: Reports: Fracture, Neck Pain, Chronic, Osteoarthritis Neurological History: Reports: TIA Psychiatric History: Reports: Addiction, Anxiety, Depression, Panic Attack Other Psychiatric History: denies this history Endocrine/Metabolic History: Reports: Diabetes, Type II, Vitamin D Deficiency Other Endocrine/Metabolic History: has not had diabetic issues since bariatric surgery Hematologic History: Reports: Anemia, B12 Deficiency, Blood Transfusion(s) Dermatologic History: Reports: Other (See Below) Other Dermatologic History: occasional rash - Infectious Disease History Infectious Disease History: Reports: Chicken Pox, Measles, Mumps Other Infectious Disease History: unknown - Past Surgical History Head Surgeries/Procedures: Reports: None HEENT Surgical History: Reports: Other (See Below) Other HEENT Surgeries/Procedures: scar tissue removed from nose Cardiovascular Surgical History: Reports: Coronary Artery Bypass, Other (See Below) Other Cardiovascular Surgeries/Procedures: quad bypass-2011 veins removed left arm= No BP or IV-poor circulation GI Surgical History: Reports: Bariatric Procedure, Cholecystectomy, Colonoscopy , EGD, Esophageal Dilatation, Hernia, Abdominal, Gisela Fundoplication Other GI Surgeries/Procedures: lap RNY on 12-31-15 Endocrine Surgical History: Reports: None Neurological Surgical History: Reports: C-Spine Musculoskeletal Surgical History: Reports: None Social & Family History - Family History Family Medical History: Noncontributory HEENT: Reports: Cataract, Hearing Impairment, Impaired Vision Cardiac: Reports: CAD, Hypertension Respiratory: Reports: COPD GI: Reports: None : Reports: None OBGYN: Reports: None Musculoskeletal: Reports: Arthritis, Gout Neurological: Reports: None Psychiatric: Reports: Anxiety Endocrine/Metabolic: Reports: Diabetes, Type I, Diabetes, type II Hematologic: Reports: None Immunologic: Reports: None Dermatologic: Reports: None Oncologic: Reports: Prostate - Tobacco Use Smoking Status *Q: Never Smoker - Caffeine Use Caffeine Use: Reports: None Other Caffeine Use: 1/2 cup per day - Alcohol Use Days Per Week of Alcohol Use: 7 Number of Drinks Per Day: 10 Total Drinks Per Week: 70 Date of Last Drink: 01/01/19 - Recreational Drug Use Recreational Drug Use: Yes Drug Use in Last 12 Months: Yes Recreational Drug Type: Reports: Marijuana/Hashish Other Recreational Drug Type: medical marijuana prescribed to pt uses to get off the oxycodone Recreational Drug Use Frequency: Daily ED ROS GENERAL - Review of Systems Review Of Systems: See Below Constitutional: Reports: No Symptoms HEENT: Reports: No Symptoms Respiratory: Reports: No Symptoms Cardiovascular: Reports: Syncope GI/Abdominal: Reports: No Symptoms : Reports: No Symptoms Musculoskeletal: Reports: No Symptoms Skin: Reports: Bruising Neurological: Reports: No Symptoms ED EXAM, GENERAL - Physical Exam Exam: See Below Free Text/Narrative:: General: Male, not in any distress, alert and oriented x3 HEENT: head is bruising is appreciated on the forehead with some edema frontal bone normocephalic, eyes pupils equal round reactive to light, sclera clear no conjunctivitis appreciated. Ears tympanic membranes clear and guevara landmarks and light reflex are present bilaterally canals are clear. Nose no septal deviation, nares are clear, no blood present. Mouth mucosa is moist and pink no erythema or exudate noted in soft palate, tongue is midline uvula is midline , dentition is poor, superficial abrasion appreciated on lower lip. Neck: Supple no thyromegaly no tracheal deviation. Nodes: Cervical nodes subclavicular nodes nontender no palpable lymphadenopathy noted. Lungs: clear to auscultation bilaterally with symmetrical respirations, no adventitious noise appreciated. CV: Regular rate and rhythm S1 and S2 appreciated no murmurs rubs or gallops noted. Abdomen: Soft, nontender, no palpable masses or organomegaly appreciated, no distention no guarding bowel sounds are present, . Neuro: Cranial nerves II test with pupillary light reflex 4 mm to 2 mm bilaterally, CN III test pupillary constriction, limited elevation and eye abduction bilaterally, CN IV downward movement of eyes bilaterally, CN V good jaw movement, CN lateral deviation of the eyes bilaterally to finger movement , CN VII symmetrical smile shows teeth without difficulty, CN VIII pass finger rub to ears bilaterally, CN IX adequate voice and tone, CN X adequate voice and tone no difficulty swallowing, CN XI can shrug shoulders without difficulty, CN XII can stick tongue out without difficulty, cranial nerves II to XII intact as tested, Skin: Warm and dry, intact Extremities: No lower extremity edema appreciated, Course - Vital Signs Last Recorded V/S: Last Vital Signs Temp 96.0 F 01/01/19 19:36 Pulse 51 L 01/01/19 21:04 Resp 19 01/01/19 19:37 BP 107/64 01/01/19 21:04 Pulse Ox 93 L 01/01/19 21:04 - Orders/Labs/Meds Orders: Active Orders 24 hr Category Date Time Status Cardiac Monitoring [RC] .As Directed Care 01/01/19 19:44 Active EKG Documentation Completion [RC] ASDIRECTED Care 01/01/19 19:45 Active Peripheral IV Care [RC] . DIRECTED Care 01/01/19 19:45 Active Lactated Ringers [Ringers, Lactated] 1,000 ml Med 01/01/19 19:45 Active IV ASDIRECTED Sodium Chloride 0.9% [Saline Flush] Med 01/01/19 19:44 Active 10 ml FLUSH ASDIRECTED PRN Peripheral IV Insertion Adult [OM.PC] Stat Oth 01/01/19 19:44 Ordered EKG 12 Lead [EK] Stat Ther 01/01/19 19:45 Ordered Medication Orders Lactated Ringer's (Ringers, Lactated) 1,000 mls @ 999 mls/hr IV ASDIRECTED WENDY Last Admin: 01/01/19 19:59 Dose: 999 mls/hr Sodium Chloride (Saline Flush) 10 ml FLUSH ASDIRECTED PRN PRN Reason: Keep Vein Open Last Admin: 01/01/19 19:59 Dose: 10 ml Labs: Laboratory Tests 01/01/19 01/01/19 01/01/19 Range/Units 20:02 20:02 20:02 WBC 6.1 (4.5-11.0) K/uL RBC 4.21 L (4.30-5.90) M/uL Hgb 13.1 (12.0-15.0) g/dL Hct 39.8 L (40.0-54.0) % MCV 95 (80-98) fL MCH 31 (27-31) pg MCHC 33 (32-36) % Plt Count 196 (150-400) K/uL Neut % (Auto) 67 H (36-66) % Lymph % (Auto) 17 L (24-44) % [place] % (Auto) 10 H (2-6) % Eos % (Auto) 6 H (2-4) % Baso % (Auto) 1 (0-1) % Sodium 133 L (140-148) mmol/L Potassium 4.7 (3.6-5.2) mmol/L Chloride 97 L (100-108) mmol/L Carbon Dioxide 23 (21-32) mmol/L Anion Gap 17.7 H (5.0-14.0) mmol/L BUN 9 (7-18) mg/dL Creatinine 0.9 (0.8-1.3) mg/dL Est Cr Clr Drug Dosing TNP Estimated GFR (MDRD) > 60 (>60) Glucose 129 H (74-106) mg/dL Calcium 8.2 L (8.5-10.1) mg/dL Total Bilirubin 0.3 D (0.2-1.0) mg/dL AST 100 H (15-37) U/L ALT 76 (12-78) U/L Alkaline Phosphatase 136 H (46-116) U/L Troponin I < 0.017 (0.000-0.056) ng/mL Total Protein 6.3 L (6.4-8.2) g/dL Albumin 2.9 L (3.4-5.0) g/dL Globulin 3.4 (2.3-3.5) g/dL Albumin/Globulin Ratio 0.9 L (1.2-2.2) Ethyl Alcohol 147 mg/dL Meds: Medications Generic Name Dose Route Start Last Admin Trade Name Freq PRN Reason Stop Dose Admin Lactated Ringer's 1,000 mls @ 999 mls/hr 01/01/19 19:45 01/01/19 19:59 Ringers, Lactated IV 999 mls/hr ASDIRECTED WENDY Administration Sodium Chloride 10 ml 01/01/19 19:44 01/01/19 19:59 Saline Flush FLUSH 10 ml ASDIRECTED PRN Administration Keep Vein Open Departure - Departure Time of Disposition: 21:20 Disposition: Home, Self-Care 01 Condition: Fair Clinical Impression: Syncope and collapse Referrals: Juanito Zimmerman [facility] [Primary Care Provider] - Forms: ED Department Discharge Additional Instructions: Take full course of antibiotics, recommend moving Flomax to prior to going to bed start taking it tomorrow night, follow-up with your primary care physician next 3-5 days for reevaluation - My Orders Last 24 Hours: My Active Orders 01/01/19 19:44 Cardiac Monitoring [RC] .As Directed Sodium Chloride 0.9% [Saline Flush] 10 ml FLUSH ASDIRECTED PRN Peripheral IV Insertion Adult [OM.PC] Stat 01/01/19 19:45 EKG Documentation Completion [RC] ASDIRECTED Peripheral IV Care [RC] . DIRECTED Lactated Ringers [Ringers, Lactated] 1,000 ml IV ASDIRECTED EKG 12 Lead [EK] Stat - Assessment/Plan Last 24 Hours: My Active Orders 01/01/19 19:44 Cardiac Monitoring [RC] .As Directed Sodium Chloride 0.9% [Saline Flush] 10 ml FLUSH ASDIRECTED PRN Peripheral IV Insertion Adult [OM.PC] Stat 01/01/19 19:45 EKG Documentation Completion [RC] ASDIRECTED Peripheral IV Care [RC] . DIRECTED Lactated Ringers [Ringers, Lactated] 1,000 ml IV ASDIRECTED EKG 12 Lead [EK] Stat Plan: Assessment Acuity = acute Site and laterality = syncopal event with bereavement amoxicillin by mouth 3 times a day Etiology = unclear etiology possibly related to alcohol and Flomax which he takes during the day around noon Manifestations = none Location of injury = Home Lab values = CBC unremarkable, sodium low at 133 consistent hyponatremia AST elevated at 100 consistent elevated liver enzymes troponin was negative alcohol is 147 CT scan shows questionable area of a diastasis suture of uncertain clarity, EKG temperature is normal sinus rhythm no signs of ischemia Plan Recommend moving Flomax to at night prior to going to bed, recommend refrain from alcohol follow-up primary care for reevaluation because of questionable fracture I'm to place him on amoxicillin 500 mg by mouth 3 times a day 10 days follow-up primary care 3-5 days for further evaluation This note was dictated using [employer] voice recognition software please call with any questions on syntax or grammar.
--- NOTE | 2019-01-01 20:41 | CRLCT ---
INDICATION: Syncope. Injury TECHNIQUE: CT head without contrast. COMPARISON: None available FINDINGS: There is mild age-related cortical volume loss. The ventricles are within normal limits for the patient`s age. There is no mass effect or midline shift. There are small old lacunar infarcts in and adjacent to the right caudate head. Small hypodensity adjacent to the right ventricular frontal horn could represent minimal chronic small vessel ischemic change. There is no loss of guevara-white differentiation. There is no evidence of acute intracranial hemorrhage. No acute calvarial fracture is seen. There is a frontal scalp hematoma. A 9 x 8 mm right occipital subcutaneous nodule is nonspecific. Mild paranasal sinus mucosal thickening is seen. There is opacification of right mastoid air cells. There are small calcifications along the posterior aspects of the globes, nonspecific. IMPRESSION: No evidence of an acute intracranial hemorrhage, mass effect or loss of guevara-white differentiation. Mild atrophy and chronic ischemic changes. A frontal scalp hematoma. Right mastoid disease. Mild paranasal sinus disease. Apparent small calcifications along the posterior aspects of the globes, nonspecific. Correlate clinically. A right occipital subcutaneous nodule, nonspecific. Dictated by Harsha Moreno MD @ 01/01/2019 8:39:30 PM Please note that all CT scans at this facility use dose modulation, iterative reconstruction, and/or weight-based dosing when appropriate to reduce radiation dose to as low as reasonably achievable. Dictated by: Harsha Moreno MD @ 01/01/2019 20:39:35 (Electronically Signed)
--- NOTE | 2019-01-01 20:47 | CRLCT ---
INDICATION: Injury TECHNIQUE: CT maxillofacial without contrast. COMPARISON: None available FINDINGS: A small lucency in the posterolateral wall of the right maxillary sinus could represent a minimally diastatic suture. Otherwise, no acute facial bone fracture is seen. There is a right frontal scalp hematoma. The orbital contents appear grossly symmetrical. There is paranasal sinus mucosal thickening, more pronounced in the maxillary sinuses, with bilateral maxillary sinus air-fluid levels. There are opacified right mastoid air cells. There are partially imaged post laminectomy changes at C4 and C5. IMPRESSION: A small lucency in the posterolateral right maxillary sinus wall could represent a minimally diastatic suture, otherwise no acute facial bone fracture seen. Paranasal sinus disease with maxillary sinus air-fluid levels. Right mastoid disease. Dictated by Harsha Moreno MD @ 01/01/2019 8:46:08 PM Please note that all CT scans at this facility use dose modulation, iterative reconstruction, and/or weight-based dosing when appropriate to reduce radiation dose to as low as reasonably achievable. Dictated by: Harsha Moreno MD @ 01/01/2019 20:46:20 (Electronically Signed)
[2019-01-01 21:04] VITALS: BP 107/64
== END 2019-01-01 21:41 | disposition home or self-care (01) ==
LOC: JP.ED 18:58
DX: R55 Syncope and collapse (principal); I10 Essential (primary) hypertension; I25.10 Atherosclerotic heart disease of native coronary artery without angina pectoris; E11.9 Type 2 diabetes mellitus without complications; Z95.1 Presence of aortocoronary bypass graft; I25.2 Old myocardial infarction; Z90.49 Acquired absence of other specified parts of digestive tract; Z98.890 Other specified postprocedural states; Z79.82 Long term (current) use of aspirin; Z79.899 Other long term (current) drug therapy
CPT/HCPCS: 36415; 70450; 70486; 80053; 84484; 85025; 93005; 99285; G0480; J7120

== ENCOUNTER 2019-03-30 11:05 | Emergency (ER) | payer MEDICAID ==
[2019-03-30 11:34] VITALS: BP 147/77
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
== END 2019-03-30 12:32 ==
LOC: JP.ED 11:05
DX: F32.9 Major depressive disorder, single episode, unspecified (principal); F10.10 Alcohol abuse, uncomplicated; Y90.6 Blood alcohol level of 120-199 mg/100 ml; I10 Essential (primary) hypertension; E78.00 Pure hypercholesterolemia, unspecified; I25.2 Old myocardial infarction; J44.9 Chronic obstructive pulmonary disease, unspecified; F41.9 Anxiety disorder, unspecified; E11.9 Type 2 diabetes mellitus without complications; Z79.82 Long term (current) use of aspirin; Z79.899 Other long term (current) drug therapy
CPT/HCPCS: 36415; 80053; 80305; 81001; 85025; 99284; G0480

== ENCOUNTER 2020-08-02 06:35 | Day surgery (SDC) | payer MEDICARE, MEDICAID ==
[2020-08-02] MEDS ORDERED: Cyanocobalamin (Vitamin B12) 1,000 MCG/ML SDV IM ONE (07:00)
[2020-08-02] MEDS ORDERED: Lactated Ringers 1,000 ML IV ONE (07:00)
[2020-08-02] MEDS ORDERED: Glycopyrrolate 0.2 MG/ML 2 ML SDV IVPUSH ONE (07:00)
[2020-08-02] MEDS ORDERED: Propofol 200 MG/20 ML SDV ONE (07:07)
[2020-08-02] MEDS ORDERED: fentaNYL 100 MCG/2 ML SDV ONE (07:07)
[2020-08-02] MEDS ORDERED: MVI, Adult with Vitamin K 10 ML, Thiamine 200 MG, Chromium/Copper/Mang/Selen/Zn 1 ML in... IV ONE ×4 (08:00)
[2020-08-02 09:45] VITALS: BP 116/65; PULSE 81
--- NOTE | 2020-08-07 13:32 | OR ---
DATE OF PROCEDURE: 08/02/2020 SURGEON: Jamari Augustin MD PREOPERATIVE DIAGNOSIS: Dysphagia referable to distal esophagus or gastrojejunostomy. 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 OPERATIVE PROCEDURE: Upper GI endoscopy with dilation of gastrojejunostomy ([id number]). ANESTHESIA: IV sedation. INDICATION FOR PROCEDURE: The patient is a 64-year-old status post Magdalene-en-Y gastric bypass, presenting with some increasing dysphagia. The plan is to proceed with upper GI endoscopy with biopsies and/or dilation as indicated. Potential risks of the procedure including bleeding and perforation were discussed, and the patient wishes to proceed. DETAILS OF PROCEDURE: The patient was taken to the operating room and placed in a left lateral decubitus position. IV sedation was administered, after which the upper GI endoscope was passed orally through the length of the esophagus and into the area of the gastrojejunostomy. This was only mildly strictured with the scope being easily passed through that area. Likewise, there was no significant inflammation and otherwise, no additional abnormalities were noted within the Magdalene limb more proximal to that. At this point, a Bard gastrointestinal balloon catheter was centered across the gastrojejunostomy and inflated to 54-Hebrew size. This was held in position for 1 minute, after which the balloon catheter was deflated and withdrawn. There were no changes noted in the diameter of the anastomosis, as it was already quite wide. The scope was then withdrawn and the procedure then concluded. The patient was instructed to try to take more in the way of supplements and continue on the Protonix and Levsin. He will be following up with [facility] in roughly 1 month. Jamari Augustin MD /[id number]
== END 2020-08-02 09:40 | disposition home or self-care (01) ==
LOC: JP.SDS 06:35
PROVIDERS: ATTEND Surgery
DX: K94.29 Other complications of gastrostomy (principal); G47.33 Obstructive sleep apnea (adult) (pediatric); E11.9 Type 2 diabetes mellitus without complications; I10 Essential (primary) hypertension; K21.9 Gastro-esophageal reflux disease without esophagitis; J44.9 Chronic obstructive pulmonary disease, unspecified; Z88.8 Allergy status to other drugs, medicaments and biological substances; Z98.84 Bariatric surgery status
CPT/HCPCS: 43245; J2704; J3010; J3411; J3420; J3490; J7120

== ENCOUNTER 2021-05-25 13:05 | Emergency (ER) | payer MEDICARE, MEDICAID ==
--- NOTE | 2021-05-25 13:35 | EDM.PDOC ---
ED HPI GENERAL MEDICAL PROBLEM - General Chief Complaint: Gastrointestinal Problem Stated Complaint: CANNOT KEEP ANYTHING DOWN, UNABLE TO DRINK Time Seen by Provider: 05/25/21 13:35 Source of Information: Reports: Patient History Limitations: Reports: No Limitations - History of Present Illness INITIAL COMMENTS - FREE TEXT/NARRATIVE: This is a 65 year old male presenting with vomiting. The patient reports that 4 days ago he developed vomiting to the point where he cannot keep anything down, not fluids or solids. He reports that he has a history of esophageal strictures and has episodes similar to this. He reports that he will try to swallow some water and will have discomfort in his esophagus. Then about a minute or two later the pain moves further down to the epigastrium and then he regurgitates whatever he was trying to swallow. He states he has not been able to get anything to stay down for the past 4 days. He denies fever or chills. He denies pain when he is not trying to eat or drink anything. He does note that he has had decreased urine output over the past 3 days. Upper Abdomen Pain Score (Numeric/FACES): 6 - Related Data Allergies Allergy/AdvReac Type Severity Reaction Status Date / Time [id number] Reductase AdvReac Muscle Verified 05/25/21 13:24 Inhibitor Aches Home Meds: Home Meds Aspirin [Vince Chewable Aspirin] 81 mg PO DAILY 12/08/14 [History] Cetirizine [ZyrTEC] 10 mg PO DAILY PRN 01/25/18 [History] Hyoscyamine Sulfate [Levsin-Sl] 0.125 mg PO Q4H PRN 07/31/20 [History] Pantoprazole Sodium [Protonix] 40 mg PO BID 07/31/20 [History] Vitamin E 100 units PO DAILY 07/31/20 [History] Multivitamin [Multi-Vitamin Daily] 1 tab PO DAILY 08/02/20 [History] Furosemide 20 mg PO DAILY 05/25/21 [History] Spironolactone [Aldactone] 50 mg PO DAILY 05/25/21 [History] Tamsulosin [Tamsulosin 24 Hr] 0.4 mg PO DAILY 05/25/21 [History] traZODone 50 mg PO BEDTIME 05/25/21 [History] Past Medical History HEENT History: Reports: Allergic Rhinitis, Hard of Hearing, Impaired Vision Other HEENT History: wears glasses Cardiovascular History: Reports: Bypass, CAD, High Cholesterol, Hypertension, [place] Respiratory History: Reports: Asthma, COPD, SOB Other Respiratory History: patient states no longer has respiratory problems; has been ok for past year Gastrointestinal History: Reports: Cholelithiasis, Chronic Constipation, Chronic Diarrhea, GERD, Hiatal Hernia, Irritable Bowel Syndrome, Pancreatitis, Other (See Below) Other Gastrointestinal History: colitis Genitourinary History: Reports: None Musculoskeletal History: Reports: Fracture, Neck Pain, Chronic, Osteoarthritis Neurological History: Reports: TIA Psychiatric History: Reports: Addiction, Anxiety, Depression, Panic Attack Other Psychiatric History: denies this history Endocrine/Metabolic History: Reports: Diabetes, Type II, Vitamin D Deficiency Other Endocrine/Metabolic History: has not had diabetic issues since bariatric surgery Hematologic History: Reports: Anemia, B12 Deficiency, Blood Transfusion(s) Immunologic History: Reports: None Oncologic (Cancer) History: Reports: None Dermatologic History: Reports: None Other Dermatologic History: occasional rash - Infectious Disease History Infectious Disease History: Reports: Chicken Pox, Measles, Mumps Other Infectious Disease History: unknown - Past Surgical History Head Surgeries/Procedures: Reports: None HEENT Surgical History: Reports: Other (See Below) Other HEENT Surgeries/Procedures: scar tissue removed from nose Cardiovascular Surgical History: Reports: Coronary Artery Bypass, Other (See Below) Other Cardiovascular Surgeries/Procedures: quad bypass-2011 veins removed left arm= No BP or IV-poor circulation Respiratory Surgical History: Reports: None GI Surgical History: Reports: Bariatric Procedure, Cholecystectomy, Colonoscopy, EGD, Esophageal Dilatation, Hernia, Abdominal, Gisela Fundoplication Other GI Surgeries/Procedures: lap RNY on 12-31-15 Male Surgical History: Reports: None Endocrine Surgical History: Reports: None Neurological Surgical History: Reports: C-Spine Musculoskeletal Surgical History: Reports: None Oncologic Surgical History: Reports: None Dermatological Surgical History: Reports: None Social & Family History - Family History Family Medical History: No Pertinent Family History HEENT: Reports: Cataract, Hearing Impairment, Impaired Vision Cardiac: Reports: CAD, Hypertension Respiratory: Reports: COPD GI: Reports: None : Reports: None OBGYN: Reports: None Musculoskeletal: Reports: Arthritis, Gout Neurological: Reports: None Psychiatric: Reports: Anxiety Endocrine/Metabolic: Reports: Diabetes, Type I, Diabetes, type II Hematologic: Reports: None Immunologic: Reports: None Dermatologic: Reports: None Oncologic: Reports: Prostate - Caffeine Use Caffeine Use: Reports: None Other Caffeine Use: 1/2 cup per day ED ROS GENERAL - Review of Systems Review Of Systems: Comprehensive ROS is negative, except as noted in HPI. ED EXAM, GI/ABD - Physical Exam Exam: See Below Exam Limited By: No Limitations General Appearance: Alert, No Apparent Distress, Other (appears older than stated age) Throat/Mouth: Other (oral mucosa is dry) Head: Atraumatic, Normocephalic Neck: Supple, Full Range of Motion Respiratory/Chest: No Respiratory Distress, Lungs Clear, Normal Breath Sounds, No Accessory Muscle Use, Chest Non-Tender Cardiovascular: Regular Rate, Rhythm GI/Abdominal Exam: Soft, Non-Tender, No Distention. No: Guarding, Rigid, Rebound Extremities: Normal Inspection, Normal Range of Motion Neurological: Alert, Oriented, CN II-XII Intact, Normal Cognition Psychiatric: Normal Affect, Normal Mood Skin Exam: Warm, Dry, No Rash. No: Jaundice Course - Vital Signs Last Recorded V/S: Last Vital Signs Temp 97.9 F 05/25/21 13:23 Pulse 65 05/25/21 15:29 Resp 18 05/25/21 14:00 BP 102/57 L 05/25/21 15:29 Pulse Ox 98 05/25/21 15:29 - Orders/Labs/Meds Orders: Active Orders 24 hr Category Date Time Status UA W/MICROSCOPIC [URIN] Stat Lab 05/25/21 13:59 Ordered MVI, Adult with Vitamin K [Infuvite Adult] 10 ml Med 05/25/21 14:00 Active Thiamine [Vitamin B-1] 100 mg Folic Acid 1 mg Magnesium Sulfate [Magnesium Sulfate 50%] 3 gm Sodium Chloride 0.9% [Normal Saline] 1,000 ml IV ASDIRECTED Sodium Chloride 0.9% [Normal Saline] 1,000 ml Med 05/25/21 15:15 Active IV ASDIRECTED Medication Orders Multivitamins/Minerals 10 ml/Thiamine HCl 100 mg/ Folic Acid 1 mg/ Magnesium Sulfate 3 gm/ Sodium Chloride 1,017.2 mls @ 1,000 mls/hr IV ASDIRECTED WENDY Last Admin: 05/25/21 14:17 Dose: 1,000 mls/hr Documented by: PREILOR Sodium Chloride (Normal Saline) 1,000 mls @ 1,000 mls/hr IV ASDIRECTED WENDY Last Admin: 05/25/21 15:36 Dose: 1,000 mls/hr Documented by: PREILOR Labs: Laboratory Tests 05/25/21 05/25/21 05/25/21 Range/Units 13:55 13:55 13:55 WBC 8.7 (4.5-11.0) K/uL RBC 3.43 L (4.30-5.90) M/uL Hgb 11.8 L D (12.0-15.0) g/dL Hct 35.4 L (40.0-54.0) % MCV 103 H (80-98) fL MCH 34 H (27-31) pg MCHC 33 (32-36) % Plt Count 166 (150-400) K/uL Neut % (Auto) 72.5 H (36-66) % Lymph % (Auto) 10.3 L (24-44) % [place] % (Auto) 16.2 H (2-6) % Eos % (Auto) 0.5 L (2-4) % Baso % (Auto) 0.5 (0-1) % Sodium 138 L (140-148) mmol/L Potassium 4.1 (3.6-5.2) mmol/L Chloride 99 L (100-108) mmol/L Carbon Dioxide 23 (21-32) mmol/L Anion Gap 20.1 H (5.0-14.0) mmol/L BUN 15 (7-18) mg/dL Creatinine 0.9 (0.8-1.3) mg/dL Est Cr Clr Drug Dosing 82.88 mL/min Estimated GFR (MDRD) > 60 (>60) Glucose 82 (74-106) mg/dL Calcium 9.2 (8.5-10.1) mg/dL Magnesium 1.9 (1.8-2.4) mg/dL Total Bilirubin 1.6 H D (0.2-1.0) mg/dL AST 29 (15-37) U/L ALT 18 (12-78) U/L Alkaline Phosphatase 90 (46-116) U/L Total Protein 7.1 (6.4-8.2) g/dL Albumin 3.5 (3.4-5.0) g/dL Globulin 3.6 H (2.3-3.5) g/dL Albumin/Globulin Ratio 1.0 L (1.2-2.2) Lipase 47 L (73-393) U/L Meds: Medications Generic Name Dose Route Start Last Admin Trade Name Freq PRN Reason Stop Dose Admin Multivitamins/Minerals 10 ml/ 1,017.2 mls @ 1,000 mls/hr 05/25/21 14:00 05/25/21 14:17 Thiamine HCl 100 mg/ Folic IV 1,000 mls/hr Acid 1 mg/ Magnesium Sulfate 3 ASDIRECTED WENDY Administration gm/ Sodium Chloride Sodium Chloride 1,000 mls @ 1,000 mls/hr 05/25/21 15:15 05/25/21 15:36 Normal Saline IV 1,000 mls/hr ASDIRECTED WENDY Administration Discontinued Medications Generic Name Dose Route Start Last Admin Trade Name Freq PRN Reason Stop Dose Admin Ondansetron HCl 4 mg 05/25/21 14:00 05/25/21 14:06 Ondansetron 4 Mg/2 Ml Sdv IVPUSH 05/25/21 14:01 4 mg ONETIME ONE Administration Departure - Departure Time of Disposition: 16:25 Disposition: Home, Self-Care 01 Clinical Impression: Dysphagia - Discharge Information Instructions: Dysphagia Referrals: Juanito Zimmerman [facility] [employer] [Primary Care Provider] - Forms: ED Department Discharge Additional Instructions: Nothing to eat or drink after midnight. Come to [facility] in am 05/25/21 at 09:30am for an EGD possible dilation with Dr Augustin. Please bring a line driver and list of medications. You are allowed one person with you, wear a mask. Sepsis Event Note (ED) - Evaluation Sepsis Screening Result: No Definite Risk - Focused Exam Vital Signs: Vital Signs Temp Pulse Resp BP Pulse Ox 05/25/21 15:29 65 102/57 L 98 05/25/21 14:00 68 18 100/56 L 98 05/25/21 13:23 97.9 F 72 16 130/58 L 98 05/25/21 13:15 97.9 F 72 16 130/58 L 98 - Problem List Review Problem List Initiated/Reviewed/Updated: Yes - My Orders Last 24 Hours: My Active Orders 05/25/21 13:59 UA W/MICROSCOPIC [URIN] Stat 05/25/21 14:00 MVI, Adult with Vitamin K [Infuvite Adult] 10 ml Thiamine [Vitamin B-1] 100 mg Folic Acid 1 mg Magnesium Sulfate [Magnesium Sulfate 50%] 3 gm Sodium Chloride 0.9% [Normal Saline] 1,000 ml IV ASDIRECTED 05/25/21 15:15 Sodium Chloride 0.9% [Normal Saline] 1,000 ml IV ASDIRECTED - Assessment/Plan Last 24 Hours: My Active Orders 05/25/21 13:59 UA W/MICROSCOPIC [URIN] Stat 05/25/21 14:00 MVI, Adult with Vitamin K [Infuvite Adult] 10 ml Thiamine [Vitamin B-1] 100 mg Folic Acid 1 mg Magnesium Sulfate [Magnesium Sulfate 50%] 3 gm Sodium Chloride 0.9% [Normal Saline] 1,000 ml IV ASDIRECTED 05/25/21 15:15 Sodium Chloride 0.9% [Normal Saline] 1,000 ml IV ASDIRECTED Assessment:: This is a 65 year old male presenting with difficulty swallowing and vomiting. 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 His symptoms today are consistent with prior episodes. He appears mildly dehydrated on arrival, but is afebrile and has a benign abdominal exam. His labs are unrevealing and appear at his baseline. I do not feel he requires abdominal imaging given his benign abdominal exam and no real complaint of abdominal pain. His presentation is consistent with prior episodes of dysphagia secondary to strictures. I discussed the patient with the on-call surgeon Dr. Augustin, who recommended the patient be given IVF rehydration in the ED today and then discharged home and return tomorrow morning for EDG with possible dilation. The patient received 2 L of IVF and was requesting discharge. I will discharge him home and he will follow up tomorrow with Dr. Augustin for EGD.
[2021-05-25] MEDS ORDERED: Ondansetron 4 MG/2 ML SDV IVPUSH ONE (14:00)
[2021-05-25] MEDS ORDERED: MVI, Adult with Vitamin K 10 ML, Thiamine 100 MG, Folic Acid 1 MG, Magnesium Sulfate 3 ... IV SCH ×5 (14:00)
[2021-05-25] MEDS ORDERED: Sodium Chloride 0.9% 1,000 ML IV SCH (15:15)
[2021-05-25 15:30] VITALS: BP 102/57; PULSE 65
== END 2021-05-25 16:42 | disposition home or self-care (01) ==
LOC: JP.ED 13:05
DX: R13.10 Dysphagia, unspecified (principal); I25.10 Atherosclerotic heart disease of native coronary artery without angina pectoris; I10 Essential (primary) hypertension; I25.2 Old myocardial infarction; J44.9 Chronic obstructive pulmonary disease, unspecified; K21.9 Gastro-esophageal reflux disease without esophagitis; M19.90 Unspecified osteoarthritis, unspecified site; E11.9 Type 2 diabetes mellitus without complications; Z88.8 Allergy status to other drugs, medicaments and biological substances; Z79.82 Long term (current) use of aspirin; Z79.899 Other long term (current) drug therapy
CPT/HCPCS: 36415; 80053; 83690; 83735; 85025; 96365; 96375; 99284; J2405; J3411; J3475; J7030; J3490

== ENCOUNTER 2021-05-26 09:30 | Day surgery (SDC) | payer MEDICARE, MEDICAID ==
[2021-05-26] MEDS ORDERED: Lactated Ringers 1,000 ML IV ONE (10:00)
[2021-05-26] MEDS ORDERED: Cyanocobalamin (Vitamin B12) 1,000 MCG/ML SDV IM ONE (10:00)
[2021-05-26] MEDS ORDERED: fentaNYL 100 MCG/2 ML SDV ONE (10:24)
[2021-05-26] MEDS ORDERED: Propofol 200 MG/20 ML SDV ONE (10:24)
[2021-05-26] MEDS ORDERED: MVI, Adult with Vitamin K 10 ML, Thiamine 200 MG, Chromium/Copper/Mang/Selen/Zn 1 ML in... IV ONE ×4 (11:00)
[2021-05-26] MEDS ORDERED: Glycopyrrolate 0.2 MG/ML 2 ML SDV IVPUSH ONE (11:15)
[2021-05-26] MEDS ORDERED: Pantoprazole 40 MG Vial IVPUSH ONE (12:11)
[2021-05-26] MEDS ORDERED: Lidocaine 2% 60 ML, Alum Hydrox/Mag Hydrox/Simeth 360 ML PO PRN ×2 (13:13)
[2021-05-26 13:38] VITALS: BP 119/69; PULSE 73
[2021-05-28 16:09] LABS: H. PYLORI BREATH TEST Positive (Negative)
--- NOTE | 2021-06-01 14:52 | OR ---
DATE OF PROCEDURE: 05/26/2021 SURGEON: Jamari Augustin MD PREOPERATIVE DIAGNOSIS: Dysphagia and discomfort referable to the distal esophagus and area of the gastrojejunostomy. POSTOPERATIVE DIAGNOSES: 1. 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 2. Retained food and pills within distal esophagus at the gastric pouch. PROCEDURE PERFORMED: Upper gastrointestinal endoscopy with: 1. Dilation of gastrojejunostomy (30543). 2. Removal of foreign body from distal esophagus at gastric pouch (19739). ANESTHESIA: General. INDICATIONS FOR PROCEDURE: This is a 65-year-old status post previous Magdalene-en-Y gastric bypass, presenting with dysphagia and discomfort referables to the distal esophagus. He has been on Protonix, though only intermittently recently, and the plan is to proceed with upper GI endoscopy with biopsies and/or dilation as indicated. Potential risks including bleeding and perforation were discussed, and the patient wishes to proceed. DETAILS OF PROCEDURE: The patient was taken to the operating room and placed in a left lateral decubitus position. IV sedation was administered after which the upper GI endoscope was passed orally through the length of the esophagus and into the area around the gastric pouch. The patient was noted to have some retained food and pills within the area of the distal esophagus and gastric pouch and moderate stricture with associated ulceration at the gastrojejunostomy. Initially, Bard gastrointestinal balloon catheter was centered across the anastomosis and inflated to 45-[place] size. This was held in position for 1 minute after which balloon catheter was deflated and withdrawn. The scope was used to manipulate the foreign body out of the esophagus and gastric pouch area into the jejunum to avoid any potential postoperative aspiration risk. No complications were noted, and the procedure was then concluded. The patient will be given Protonix 40 mg IV in the recovery room and then be on Protonix 40 mg daily. We reviewed with the and subsequently with the patient for him to take that medication on a daily basis. We will also obtain an H pylori breath test in the ACU postoperatively, and we will initiate an anti-H pylori treatment regimen should that test be positive. Additionally, the patient was noted to have some vitamin A levels that have been low, but there is not a good evidence that he has been treated with those low levels. He did have some blood drawn in the emergency room yesterday, and we will have a vitamin A level drawn from that blood and contact the patient should there be additional need for replenishment of vitamin D in a more active than usual manner. Otherwise, he will be following up with [facility] Calderon at [facility] in 2 weeks. Jamari Augustin MD /[id number]
== END 2021-05-26 13:30 | disposition home or self-care (01) ==
LOC: JP.SDS 09:30
PROVIDERS: ATTEND Surgery
DX: K91.89 Other postprocedural complications and disorders of digestive system (principal); R13.10 Dysphagia, unspecified; K28.9 Gastrojejunal ulcer, unspecified as acute or chronic, without hemorrhage or perforation; T18.128A Food in esophagus causing other injury, initial encounter; J44.9 Chronic obstructive pulmonary disease, unspecified; I10 Essential (primary) hypertension; I25.10 Atherosclerotic heart disease of native coronary artery without angina pectoris; E78.5 Hyperlipidemia, unspecified
CPT/HCPCS: 36415; 43245; 43247; 83013; 84590; A9270; C9113; J2704; J3010; J3411; J3420; J3490; J7120

== ENCOUNTER 2022-06-20 20:30 | Emergency (ER) | payer MEDICARE, MEDICAID ==
[2022-06-20 21:13] VITALS: BP 114/65; PULSE 96
[2022-06-20] MEDS ORDERED: HYDROmorphone 1 MG/ML Syringe IVPUSH ONE (21:27)
[2022-06-20] MEDS ORDERED: Ondansetron 4 MG/2 ML SDV IVPUSH ONE (21:27)
[2022-06-20] MEDS ORDERED: Sodium Chloride 0.9% 10 ML Syringe FLUSH PRN (21:27)
[2022-06-20] MEDS ORDERED: HYDROmorphone 0.5 MG/0.5 ML Syringe IVPUSH ONE (22:08)
[2022-06-20] MEDS ORDERED: Sodium Chloride 0.9% 1,000 ML IV SCH (22:30)
[2022-06-20] MEDS ORDERED: Propofol 200 MG/20 ML SDV ONE (22:42)
== END 2022-06-20 23:07 ==
LOC: JP.ED 20:30
DX: S93.05XA Dislocation of left ankle joint, initial encounter (principal); S82.852A Displaced trimalleolar fracture of left lower leg, initial encounter for closed fracture; I25.10 Atherosclerotic heart disease of native coronary artery without angina pectoris; J44.9 Chronic obstructive pulmonary disease, unspecified; I10 Essential (primary) hypertension; E11.9 Type 2 diabetes mellitus without complications; F17.210 Nicotine dependence, cigarettes, uncomplicated; Z88.6 Allergy status to analgesic agent; Z79.899 Other long term (current) drug therapy; Z79.82 Long term (current) use of aspirin; Z90.49 Acquired absence of other specified parts of digestive tract; Z20.822 Contact with and (suspected) exposure to COVID-19; W18.39XA Other fall on same level, initial encounter
CPT/HCPCS: 27840; 73600; 73610; 96374; 96375; 99283; J1170; J2405; J2704; J3490; J7030; U0002

== ENCOUNTER 2024-06-16 09:15 | Day surgery (SDC) | payer MEDICARE, MEDICAID ==
[2024-06-16] MEDS: Sodium Chloride 0.9% 1,000 ML IV SCH (09:57)
[2024-06-16] MEDS ORDERED: Propofol 200 MG/20 ML SDV ONE ×3 (11:34→12:07)
[2024-06-16] MEDS ORDERED: fentaNYL 50 MCG/ML SDV ONE (11:34)
[2024-06-16] MEDS ORDERED: Midazolam 1 MG/ML 2 ML SDV ONE (11:34)
[2024-06-16 13:15] VITALS: BP 126/62; PULSE 79
== END 2024-06-16 13:31 | disposition home or self-care (01) ==
LOC: JP.SDS 09:15
PROVIDERS: ATTEND Surgery
DX: K22.70 Barrett's esophagus without dysplasia (principal); K57.30 Diverticulosis of large intestine without perforation or abscess without bleeding; D64.9 Anemia, unspecified; K22.89 Other specified disease of esophagus; J44.9 Chronic obstructive pulmonary disease, unspecified; I10 Essential (primary) hypertension; K21.9 Gastro-esophageal reflux disease without esophagitis; G47.33 Obstructive sleep apnea (adult) (pediatric)
CPT/HCPCS: 00813; 43239; 45378; J2250; J2704; J3010; J7030